=== PATIENT | male | born 1960 | race Caucasian/White ===

== ENCOUNTER 2018-06-19 09:01 | Outpatient (CLI) | payer OTHER, SELFPAY ==
[2018-06-19 11:22] LABS: Cholesterol 310 mg/dL (50-200); Glucose 88 mg/dL (70-100); HDL Cholesterol 72 mg/dL (40-60); LDL CHOLESTEROL 218 mg/dL (<100); Triglyceride 56 mg/dL (30-150)
[2018-06-22 12:08] LABS: Hepatitis C Ab w Rflx HCV PCR Negative (NEGAT)
== END 2018-06-19 09:21 ==
LOC: LBO 09:02 → NCHCO 09:57
PROVIDERS: PCP Family Medicine; Visit Provider Family Medicine
DX: Z00.00 Encounter for general adult medical examination without abnormal findings (principal); Z13.1 Encounter for screening for diabetes mellitus; Z11.59 Encounter for screening for other viral diseases; Z13.220 Encounter for screening for lipoid disorders
CPT/HCPCS: 36415; 80061; 82947; 83721; 86803

== ENCOUNTER 2018-11-02 12:15 | Day surgery (SDC) | payer OTHER, SELFPAY ==
--- NOTE | 2018-11-02 06:43 | ENDO_ITS ---
Date of service: 11/02/18 Time of Service: 14:04 Endoscopy Report DATE OF PROCEDURE: 11/02/18 PRE-OP DIAGNOSIS: Colon Cancer Screening/ Hx of GERD POST-OP DIAGNOSIS: other (GAstritis and esophagitis/ normal colon) PROCEDURE: 1. EGD with bx 2. Colonoscopy SURGEON: Florida Mcghee ANESTHESIA: MAC (Jose Anguiano, PETE/ ASA 2) PATHOLOGY: other (Antrum Bx, GE junction bx) COMPLICATIONS: None DISPOSITION: same day INDICATIONS: Mr. Cortez ia a pleasant 58-year-old gentleman who was seen in the office for his first screening colonoscopy. He also has a history of GERD. His symptoms seem controlled but he is never had an upper endoscopy. Risks, benefit s and complications have been reviewed. Complications include but are not limited to bleeding, pain, perforation, missed small lesion/polyp, missed cancer, sore throat, aspiration and adverse reaction to the medications. Questions were entertained and answered to their satisfaction and they wished to proceed. No guarantees were given or implied. PREP: Miralax/Dulcolax PROCEDURE START TIME: 14:04 PROCEDURE END TIME: 14:39 COLONOSCOPY RETRACTION TIME: 11 minutes FINDINGS: 1. Upper Endoscopy- mild inflammation at the pylorus ? small shallow ulcer; as well as inflammation at the GE junction 2. Normal Colon PROCEDURE DESCRIPTION: After informed consent was obtained the patient was take to the procedure room and placed in a supine position. Monitors were applied and a time out was done. The patients name, date of , procedure type, allergies to medications and metal in their body was reviewed. A bite block was placed and the patient was sedated. Once sedated and comfortable the gastroscope was advanced through the oropharynx which was grossly normal into the esophagus. The proximal and mid-esophagus were normal. In the distal esophagus there was some inflammation noted. The scope was advanced into the stomach and through the pylorus into the 3rd portion of the duodenum. The duodenum was noted to be normal. The scope was retracted back into the stomach and biopsies were done to rule out H. pylori. There was maybe a small shallow ulcer at the pylorus. The scope was retroflexed. The cardia and fundus were noted to be normal. There was no hiatal hernia noted. The scope was retracted back into the esophagus and biopsies were done of the GE junction to rule out Walker's. The Z line was regular. The GE junction was at 35 cm. While the patient was still sedated they were placed in a left decubitous position. A rectal exam was done. External exam was normal. Internal exam revealed a normal sphincter tone and no palpable masses. The prostate felt smooth. The scope was then introduced and retro-flexed. No internal hemorrhoids were identified. The scope was then advanced to the cecum without difficulty. The TI and appendiceal orifice were identified. The prep was adequate. There was some liquid stool noted in the right colon, but I was able to wash it off. The scope was then slowly retracted over 11 minutes back into the rectum. The scope was removed and the patient was woken up and taken back to Same day surgery in stable condition. The patient tolerated the procedure well and there were no immediate complications. Follow up: HIs next colonoscopy should be in 10 years. I will start him on Zantac 150 mg BID and see him in the office in 2 weeks.
--- NOTE | 2018-11-02 06:43 | W.PM.DSUDISC ---
Discharge Plan Disposition Patient Disposition: HOME Condition: Good Discharge Details Reason For Visit: Colon Cancer Screening/ Hx of GERD Attending Provider: Florida Mcghee Primary Care Provider: Mark Wallace Home Meds and New Rx's Prescriptions: New ranitidine HCl [Zantac] 150 mg tablet 150 mg PO BID Qty: 60 RF: 5 Continued ibuprofen 200 MG tablet 200 mg PO PRN PRNRF: 0 caffeine 200 mg Tablet 200 mg PO PRN PRNRF: 0 Discontinued bisacodyl [Dulcolax (bisacodyl)] 5 mg tablet,delayed release (DR/EC) 5 mg PO ONCE Qty: 4 RF: 0 polyethylene glycol 3350 17 gram/dose powder 255 g PO ONCE Qty: 255 RF: 0 Discharge Instructions Instructions: Colonoscopy (DC), Aspiration Pneumonia (DC), Upper Endoscopy (DC), Diet for Stomach Ulcers and Gastritis (GEN), Gastritis (DC), Gastroesophageal Reflux Disease (DC) Additional Instructions: Findings: Inflammation in the stomach and esophagus Normal colon Follow up: 10 years for your next colonoscopy 2 weeks to discuss your medication New Medication: Zantac 150 mg 2 x a day Please call if you develop: fevers >101.5 Nausea or Vomiting Abdominal pain that is not transient DAY SURGERY UNIT POST COLONOSCOPY INSTRUCTIONS 1. Because there will be medication in your system for the next 24 hours, you may feel a little sleepy. Your coordination will be affected. Therefore: a. Do not drive or operate dangerous equipment for 24 hours. b. Do not drink alcohol beverages for 24 hours (not even beer). c. Plan to go home and rest for the day. 2. Generally there are no restrictions on your activity after a day or so has gone by, but you may feel a bit fatigued for a few days. 3 After you arrive home you may have a light meal and return to a normal diet as you can tolerate it without feeling sick to your stomach. 4. After surgery, you may feel pain or discomfort. This should be only transient, but if it persists please contact your doctor. 5. If there are any questions regarding the findings of your procedure, please feel free to contact your doctor. 6. If you are unable to contact your doctor with a problem, contact the hospital at [phone]. 7. Continue all your regular medications unless directed otherwise. I understand the above instructions and have no questions. Signature of Patient or Responsible Adult Escort Date/Time Name of Responsible Adult Escort Signature of Nurse Date/Time Stand Alone Forms: Uriel Pereyra (DSU) Referrals: Florida Mcghee MD [ [place] STAFF PHYSICIAN] - 11/17/18 1:00 pm Activity:: Activity as Tolerated Diet:: As Tolerated Discharge Orders Discharge Orders: Discharge Order (Routine); Ordered 11/02/18 Ordered By: Florida Mcghee
[2018-11-02 12:36] VITALS: BP 107/78; PULSE 105; RESP 18; TEMP 35.7; O2SAT 95
[2018-11-02] MEDS: Lactated Ringers 1,000 ML 80 ML IV (12:52)
--- NOTE | 2018-11-02 14:06 | STOM_PTH ---
PATIENT: Ishan Cortez LOC: [facility] U#:[id number] AGE/SX: 58/M ROOM: RE11/02/[address]: Florida Mcghee MD : 1960 BED: DIS: 11/02/2018 SPEC #: [id number] RECD: 11/02/18 18:01 STATUS: REESE RE #: [id number] MICKEY: 11/02/18 14:[address]: Florida Mcghee DEPT: Surgical Specimen RECD BY: Stacy Ruano ENTERED: 11/02/18 18:01 SP TYPE: STOMACH OTHR DR: Mark Wallace Tissues: 1 - STOMACH BIOPSY 2 - ESOPHAGUS BIOPSY Procedures: GROSS AND MICRO LEVEL 4 Comments: [id number]
[2018-11-02 14:56] VITALS: BP 88/60; O2SAT 92
[2018-11-02 15:12] VITALS: BP 113/83; PULSE 95; RESP 16; TEMP 35.3; O2SAT 95
== END 2018-11-02 16:16 | disposition home or self-care (01) ==
LOC: SUR 12:15
PROVIDERS: PCP Family Medicine; Visit Provider Surgery
PROC: (CPT 43239; principal; 2018-11-02 13:30)
DX: Z12.11 Encounter for screening for malignant neoplasm of colon (principal); K21.0 Gastro-esophageal reflux disease with esophagitis; K29.60 Other gastritis without bleeding; K31.89 Other diseases of stomach and duodenum; I10 Essential (primary) hypertension; G47.33 Obstructive sleep apnea (adult) (pediatric)
CPT/HCPCS: 43239; 45378; 88305

== ENCOUNTER 2019-04-11 00:11 | Outpatient (CLI) | payer OTHER, SELFPAY ==
[2019-04-11 10:12] LABS: HCT 45.9 % (40.0-50.0); Mean Corp. HGB Concentration 34.9 g/dL (32.0-36.0); Mean Corpuscular Hemoglobin 30.1 pg (27.0-33.0); Mean Corpuscular Volume 86.4 fL (80-95); Mean Platelet Volume 10.5 fL (8.0-11.0); Platelet Count 229 x1000/uL (130-400); RBC 5.31 m/cumm (4.50-6.00); RBC Distribution Width 12.6 % (11.8-14.1)
[2019-04-14 13:54] LABS: Testosterone, Free 9.39 ng/dL (3.87-14.7); Testosterone, Total 671 ng/dL (240-950)
== END 2019-04-11 00:31 ==
PROVIDERS: PCP Family Medicine; Visit Provider Family Medicine
DX: R53.83 Other fatigue (principal); E78.5 Hyperlipidemia, unspecified
CPT/HCPCS: 36415; 84402; 84403; 85027; 84443

== ENCOUNTER 2019-05-05 10:57 | Outpatient (CLI) | payer OTHER, SELFPAY ==
--- NOTE | 2019-05-05 09:48 | DI.RAD_ITS ---
SYMPTOM/DIAGNOSIS: ELBOW AND SHOULDER PAIN RIGHT ELBOW: No fracture or joint effusion is seen. There are no significant degenerative changes. No joint space or soft tissue calcifications are seen. IMPRESSION: Negative right elbow. RIGHT SHOULDER: No fracture or dislocation is seen. There are no significant degenerative changes. No tendon or joint space calcifications are seen. IMPRESSION: Negative right shoulder.
== END 2019-05-05 11:17 ==
PROVIDERS: PCP Family Medicine; Visit Provider Physician Assistant
DX: M25.511 Pain in right shoulder (principal); M25.521 Pain in right elbow
CPT/HCPCS: 73030; 73080

== ENCOUNTER 2019-12-01 07:56 | Observation (INO) | payer OTHER, SELFPAY ==
[2019-12-01] VITALS (26 sets, daily range): BP systolic 119–138; BP diastolic 81–102; PULSE 0–80; RESP 11–23; TEMP 36.3–37; O2SAT 92–99
--- NOTE | 2019-12-01 08:15 | DI.RAD_ITS ---
EXAM: XR CHEST 2V PA LATERAL CLINICAL HISTORY: chest pressure TECHNIQUE: 2D digital imaging was performed. COMPARISON: CHEST 2 VIEWS PA,LAT from 09/01/2017 FINDINGS: LUNGS: Clear. No pleural abnormality seen. HEART: Normal. MEDIASTINUM: Normal. OTHER FINDINGS:Normal. BONE:Normal. IMPRESSION: No acute pulmonary findings. DATA REPOSITORY: RADIATION DOSE DELIVERED:
--- NOTE | 2019-12-01 08:23 | W.ED.GENAD ---
Discharge Plan Discharge Details Chief Complaint: SOB Admit Provider: Yun Osborne Attending Provider: Yun Osborne Primary Care Provider: Mark Wallace ED Provider: Apryl Vasquez Home Meds and New Rx's Prescriptions: No Action ibuprofen 200 MG tablet 200 mg PO PRN PRNRF: 0 atorvastatin 40 mg Tablet 40 mg PO HS RF: 0 pantoprazole 20 mg Tablet,Delayed Release (Dr/Ec) 20 mg PO DAILY RF: 0 Medical Decision Making This is a pleasant 59-year-old patient presenting to the emergency room for 4 days of acute shortness of breath worse in the last 24 hours. Patient specifically reports dyspnea on exertion when climbing 2 flights of stairs to his apartment when typically he can run up the stairs with no difficulty. Patient denies chest pain at current but does report mild pressure in the chest which is very vague. No radicular symptoms. Denies headache or dizziness. Patient does report a few episodes of dizziness on standing but no sensation of syncope in the last few days. Upon initial discussion with the patient he denied any specific chest pain however reevaluation and rediscussion with the patient after initial evaluation patient does report that 2 weeks ago when climbing his stairs he had sharp midsternal chest pain which relieved after resting after climbing the stairs. Patient denies any similar pain since. Patient does have a history of hypertension, history of hyperlipidemia. Non-smoker. 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 Denies lower extremity pain however did report mild novoa pain after ambulating this week which is fully resolved and he attributed to novoa splints after walking. Patient denies any cough or hemoptysis. Patient denies any upper respiratory symptoms. He does report a cough and cold he had recently but symptoms have been fully resolved for approximately 3 weeks. Patient does report noncompliance with statin prescribed approximately 1 year ago by PCP for hyperlipidemia. Patient reports he did begin this medication 5 days ago. Patient's initial vital signs reviewed and stable. Initial EKG reviewed with Dr. Rachel reveals sinus rhythm with a rate of [address] segment changes. Q waves noted in 2, 3 and aVF. QTc 427. Aspirin given after initial evaluation. Labs ordered including cardiac troponin as well as d-dimer. Chest x-ray ordered given patient's remotely recent respiratory illness, although I have very little clinical concern of pneumonia based on his examination. Initial troponin returned negative. D-dimer returned negative. Chest x-ray unremarkable for pneumonia. Vital signs continued to remain stable. Given patient's clinical presentation and history, risk factors and age patient's heart score is calculated to be 4, moderate risk. I have recommended this patient be admitted to the hospital for stress testing. Patient agrees with the plan of care for admission and stress testing. I contacted hospitalist for admission. Hospitalist is requesting delta troponin at 3 hours prior to admission placement. Pending delta troponin Patient's delta troponin normal. Call back to hospitalist who will accept patient's admission at this time. Patient consents to admission. HPI General Date/Time Provider Initiated Documentation: 12/01/19 08:03. HPI Narrative: This is a 59-year-old patient presenting to the emergency room for complaints of shortness of breath for the last 4 days. Patient reports vague onset of shortness of breath which he noted without associated cough or chest pain. Patient does report mild chest pressure which is vague. Patient reports in the last 24 hours shortness of breath has increased. Patient reports mild dizziness. Patient denies nausea, vomiting or abdominal pain. No bowel changes. Patient reports when walking up 2 flights of stairs into his apartment he notes significant dyspnea on exertion which is not his baseline. Patient reports no back pain. No radiation to extremities. 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 Patient has a history of high cholesterol which is untreated as he is noncompliant with statins. Denies regular medical evaluations. Non-smoker. Is a daily drinker and has stopped in the last 2 days due to Lent. Patient denies any lower leg swelling. He does report a single episode of anterior novoa pain after walking a few days ago which she attributed to a walk. Patient denies any injury or trauma to the lower legs. Related Data Home Medications Medication Instructions Recorded Confirmed ibuprofen 200 mg PO PRN PRN 05/23/16 12/01/19 atorvastatin 40 mg PO HS 12/01/19 12/01/19 pantoprazole 20 mg PO DAILY 12/01/19 12/01/19 Allergies Allergy/AdvReac Type Severity Reaction Status Date / Time No Known Allergies Allergy Verified 12/01/19 08:04 General Stated Complaint: SOB FADI: 3 Review of Systems All systems reviewed & are unremarkable except as noted in HPI and below Constitutional Constitutional: Denies chills, Denies fever(s), Denies headache(s) and Denies malaise ENT Ears, Nose, Mouth, and Throat: Denies headache(s), Denies nasal congestion, Denies sinus pain and Denies sore throat Cardiovascular Cardiovascular: Denies chest pain, Denies chest pain at rest, Denies chest pain with activity, Denies diaphoresis, Denies syncope, Denies pedal edema, Denies edema, Denies radiating jaw, neck or arm pain, Denies palpitations, Reports dyspnea and Reports dyspnea on exertion Respiratory Respiratory: Denies cough, Denies hemoptysis, Denies excessive phlegm production, Reports dyspnea, Reports dyspnea on exertion, Denies stridor and Denies wheezing Gastrointestinal Gastrointestinal: Denies abdominal pain, Denies diarrhea, Denies nausea and Denies vomiting Neurologic Neurologic: Denies syncope and Denies headache(s) Endocrine Endocrine: Denies palpitations Allergic/Immunologic Allergic/Immunologic: Denies wheezing [facility] Medical History DJD (degenerative joint disease) Essential hypertension GERD (gastroesophageal reflux disease) History of obstructive sleep apnea Hyperlipidemia Left knee pain (Acute) Obstructive sleep apnea (Chronic) Overweight (Acute) Surgical History (Updated 11/09/18 @ 07:30 by Sonia Welch RN) UPPP (Uvulopalatopharyngoplasty) Social History Smoking/Tobacco Use Status: Never Alcohol Intake: current Alcohol Intake frequency: 0-2 drinks per day Alcohol type: beer and wine Drug use: Never Substance use type: does not use Do you feel safe in your relationship?: Yes Exam Narrative Exam Narrative: CONST: Healthy appearing patient, in no acute distress. Well hydrated. Alert and alert. HENMT: Head nomocephalic, normal to inspection. Atraumatic. Hearing grossly normal. External ear canal no erythema or swelling. TM normal bilaterally. Nose normal to inspection. No rhinnorhea. Normal facial exam. Oral mucosa normal. Tounge normal. Dentition normal. Normal posterior oropharynx. Uvula midline. EYES: General normal appearance. Alignment normal. Eyelids normal. Conjunctiva normal. Sclera normal. PERRL. NECK: Normal visual inspection. FROM. No lymphadenopathy. Trachea midline. No Midline tenderness. CHEST: Normal insepection of the chest. RESP: Normal respiratory effort. Speaking full sentences. No cough. No wheezing. No retractions. Clear to auscaltation. Breath sound equal and present bilaterally. No wheezing, rhonchi or rales CARDIO: No JVD. Normal PMI. Regular Rate. Regular Rhythm. Normal peripheral pulses. GI: Normal inspection of abdomen. No distension. Soft. Nontender. Bowel sounds present in all 4 quadrants. No rebound. No gaurding. MUSCULOSKELETAL: Normal Gait. FROM of all extremities. Distal neurovascularly intact. Sensation intact distally. No lower extremity edema. SKIN: Normal. Dry. No rashes. NEURO: Alert and awake. Speech clear. PSYCH: Normal affect. Cooperative. Course Vital Signs Vital signs: Vital Signs Temperature 36.7 C 12/01/19 07:58 Pulse 70 12/01/19 07:58 Respiratory Rate 14 12/01/19 07:58 Blood Pressure 134/98 H 12/01/19 07:58 Pulse Oximetry 96 12/01/19 07:58 Temperature 36.7 C 12/01/19 07:58 Temperature Source Skin 12/01/19 07:58 Pulse 70 12/01/19 07:58 Respiratory Rate 14 12/01/19 08:04 Respiratory Effort 12/01/19 08:06 Respiratory Depth Normal 12/01/19 08:04 Respiratory Pattern Normal 12/01/19 08:04 Blood Pressure 134/98 H 12/01/19 07:58 Blood Pressure Position Supine 12/01/19 07:58 Pulse Oximetry 96 12/01/19 07:58 Oxygen Delivery Method Room Air 12/01/19 07:58 Oxygen Flow Rate 0 12/01/19 07:58 Pain Level 1 12/01/19 08:04
[2019-12-01 08:31] LABS: Abs Immature Grans 0.01 k/cumm (0.0-0.09); Absolute Basophil Count 0.03 k/cumm (0.0-0.2); Absolute Eosinophil Count 0.12 k/cumm (0.0-0.7); Absolute Lymphocyte Count 1.54 k/cumm (1.2-3.4); Absolute Monocyte Count 0.39 k/cumm (0.11-0.7); Absolute Neutrophil Count 2.67 k/cumm (1.2-6.7); Basophils % 0.6; Eosinophils % 2.5; HCT 44.7 % (40.0-50.0); HGB 15.9 g/dL (13.5-17.5); Immature Grans % 0.2 %; Lymphocytes % 32.4; Mean Corp. HGB Concentration 35.6 g/dL (32.0-36.0); Mean Corpuscular Hemoglobin 30.6 pg (27.0-33.0); Monocytes % 8.2; Neutrophils % 56.1; Platelet Count 228 x1000/uL (130-400); RBC Distribution Width 12.4 % (11.8-14.1); White Blood Cell Count 4.76 k/cumm (4.4-10.8)
[2019-12-01] MEDS: Aspirin 81 MG CHEW 324 MG CH (08:48)
[2019-12-01 09:01] LABS: ALT 57 U/L (16-63); AST 36 U/L (15-37); Albumin 4.1 g/dL (3.4-5.0); Alkaline Phosphatase 56 U/L (46-116); Anion Gap 9.6 mmol/L (3-11); BUN 14 mg/dL (7-18); Bilirubin, Total 0.4 mg/dL (0.2-1.0); CO2 25.4 mmol/L (21.0-32.0); CREATININE 0.99 mg/dL (0.70-1.30); Calcium 8.1 mg/dL (8.5-10.1); Chloride 104 mmol/L (98-107); Glucose 89 mg/dL (74-106); Potassium 3.7 mmol/L (3.5-5.1); Sodium 139 mmol/L (136-145)
[2019-12-01 09:04] LABS: Troponin I < 0.05 ng/Ml (<0.06)
[2019-12-01 09:30] LABS: D-Dimer 229 ng/mlFEU (<500)
[2019-12-01 09:59] LABS: Bilirubin Negative (Negative); Blood Negative (Negative); Clarity Clear (Clear); Glucose Negative (Negative); Ketones Negative (Negative); Leukocyte Esterase Negative (Negative); Nitrite Negative (Negative); Urobilinogen 0.2 EU/dL (Up TO 0.2)
[2019-12-01 11:51] LABS: Troponin I < 0.05 ng/Ml (<0.06)
[2019-12-01] MEDS: Normal Saline Flush 10 ML SYR IVP (11:52)
[2019-12-01 13:23] LABS: *AMPHETAMINES SCREEN URINE Negative (Negative); *BARBITURATES SCREEN URINE Negative (Negative); *BENZODIAZEPINES SCREEN URINE Negative (Negative); Cannabinoids THC Negative (Negative); Cocaine Screen,Urine Negative (Negative); METHADONE URINE SCREEN Negative (Negative); OPIATES URINE SCREEN Negative (Negative)
[2019-12-01 13:24] LABS: Tricyclic Antidepressants Negative (Negative)
--- NOTE | 2019-12-01 15:17 | W.PM.HP.N ---
Date of service: 12/01/19 Time of Service: 15:17 Assessment and Plan Assessment and plan (1) SOB (shortness of breath): Start date: 12/01/19 Start time: 15:38 Status: Acute Assessment and plan: Feels as tough he is unable to take full deep breaths. Denies CP. CXR negative. Labs unremarkable. Recently put on amoxicillin for dental abscess with needing tooth to be pulled. Will r/o endocarditis. Also c/o muscle aches with statins. Lipid panel for am. Labs unremarkable. Stress test for tomorrow. Repeat cbc and bmp. Blood cultures pending. Afebrile, no leukocytosis. t (2) Hyperlipidemia: Start date: 12/01/19 Start time: 15:50 Status: None Assessment and plan: Repeat lipid panel for tomorrow. C/o muscle aches on a statin. Will hold and consider alternatives. Recently restarted taking a week ago after being told he should by a friend. (3) Dental abscess: Start date: 12/01/19 Start time: 15:51 Status: Acute Assessment and plan: On amoxicillin from dentist. Due to have tooth pulled out. R/O endocarditis. (4) DVT prophylaxis: Start date: 12/01/19 Start time: 15:52 Status: Acute Assessment and plan: Enoxaparin 40 mg subcu above case discussed with Dr. Osborne who is in agreement. History of Present Illness History of Present Illness Chief Complaint: SOB Narrative: 59 y.o male with HLD, GERD presented to [facility] ED with SOB x 4 days worsening over last 24 hours. 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 4 days ago he could not take a deep breath. Over the last 24 hours he noticed it to be worse. He denies SOB, he states he can not fully take a deep breath. He denies CP. Labs in the ED unremarkable. Urine negative. CXR negative. Repeat troponins negative. EKG with Sinus Rhythm in 70's from ED. He states he restarted taking his statin a week ago after he quit taking it a couple months ago due to muscle aches. Repeat Lipid panel for tomorrow. Hold statin. He has not needed nitro for pain. BP 122/88. Currently he is taking amoxicillin for an infected tooth, that is due to get pulled. We will continue amoxicillin dose. Stress test for tomorrow repeat labs and continue to monitor. Review of Systems All systems reviewed & are unremarkable except as noted in HPI and below PFSH Medical History DJD (degenerative joint disease) Essential hypertension GERD (gastroesophageal reflux disease) History of obstructive sleep apnea Hyperlipidemia Left knee pain (Acute) Obstructive sleep apnea (Chronic) Overweight (Acute) Surgical History UPPP (Uvulopalatopharyngoplasty) Social History Smoking/Tobacco Use Status: Never Alcohol Intake: current Alcohol Intake frequency: 0-2 drinks per day Alcohol type: beer and wine Drug use: Never Substance use type: does not use Do you feel safe in your relationship?: Yes Meds Home Medications and Allergies Home Medications Medication Instructions Recorded Confirmed Type ibuprofen 200 mg PO PRN PRN 05/23/16 12/01/19 History pantoprazole 20 mg PO DAILY 12/01/19 12/01/19 History Allergies Allergy/AdvReac Type Severity Reaction Status Date / Time Cskwpos-Bzd-Nko Reductase AdvReac Intermediate muscle Verified 12/01/19 15:15 Inhibitor aches, Exam Const General: cooperative, healthy appearing, comfortable and no acute distress Nutritional Appearance: average body habitus Orientation: alert, awake and oriented x3 HENMT Head: normal to inspection, normocephalic and atraumatic Mouth: oral mucosae normal Eyes Pupils: PERRL EOM: EOM intact bilaterally Neck Neck: normal visual inspection and full ROM Carotids: normal carotid upstroke Lymphatic: no lymphadenopathy noted Chest Chest: normal inspection of the chest Resp Effort & Inspection: normal respiratory effort Auscultation: clear to auscultation bilaterally Cardio Jugular venous pressure: no JVD Rate: regular rate Rhythm: regular rhythm Heart Sounds: S1 normal and S2 normal GI Inspection: normal to inspection Auscultation: normal bowel sounds General: deferred Back/Spine/Pelvis Back: no CVA tenderness Thoracic/Lumbar Spine: thoracic and lumbar spine normal to inspection Skin General skin exam: no rashes or lesions noted Lesions: no lesions Rashes: no rashes Neuro General: alert, awake and oriented x3 Cognition: normal cognition Extrem General: normal to inspection, full ROM and no clubbing, cyanosis or edema Psych Appearance: grossly normal Speech and Movement: speech and movement normal Mood: congruent mood Affect: normal affect Attitude: cooperative Results Labs Result diagrams: 12/01/19 08:20 12/01/19 08:20 Labs: Laboratory Results - last 24 hr 12/01/19 12/01/19 12/01/19 08:20 08:20 08:20 WBC 4.76 RBC 5.20 Hgb 15.9 Hct 44.7 MCV 86.0 MCH 30.6 MCHC 35.6 RDW 12.4 Plt Count 228 MPV 10.0 Immature Gran % 0.2 Neutrophils % 56.1 Lymphocytes % 32.4 Monocytes % 8.2 Eosinophils % 2.5 Basophils % 0.6 Absolute Neutrophils 2.67 Absolute Lymphocytes 1.54 Absolute Monocytes 0.39 Absolute Eosinophils 0.12 Absolute Basophils 0.03 D-Dimer 229 Sodium 139 Potassium 3.7 Chloride 104 Carbon Dioxide 25.4 Anion Gap 9.6 BUN 14 Creatinine 0.99 Estimated GFR/1.73 m2 >= 60.00 Glucose 89 Calcium 8.1 L Magnesium Total Bilirubin 0.4 AST 36 ALT 57 Alkaline Phosphatase 56 Troponin I < 0.05 Total Protein 7.0 Albumin 4.1 Urine Color Urine Clarity Urine pH Ur Specific [place] Urine Protein Urine Ketones Urine Blood Urine Nitrite Urine Bilirubin Urine Urobilinogen Ur Leukocyte Esterase Urine Glucose Urine Opiates Screen Urine Methadone Screen Ur Barbiturates Screen Ur Tricyclics Screen Ur Amphetamines Screen U Benzodiazepines Scrn Urine Cocaine Screen Ur THC Screen 12/01/19 12/01/19 12/01/19 09:37 09:47 11:20 WBC RBC Hgb Hct MCV MCH MCHC RDW Plt Count MPV Immature Gran % Neutrophils % Lymphocytes % Monocytes % Eosinophils % Basophils % Absolute Neutrophils Absolute Lymphocytes Absolute Monocytes Absolute Eosinophils Absolute Basophils D-Dimer Sodium Potassium Chloride Carbon Dioxide Anion Gap BUN Creatinine Estimated GFR/1.73 m2 Glucose Calcium Magnesium Total Bilirubin AST ALT Alkaline Phosphatase Troponin I < 0.05 Total Protein Albumin Urine Color Yellow Urine Clarity Clear Urine pH 7.0 Ur Specific [place] 1.010 Urine Protein Negative Urine Ketones Negative Urine Blood Negative Urine Nitrite Negative Urine Bilirubin Negative Urine Urobilinogen 0.2 Ur Leukocyte Esterase Negative Urine Glucose Negative Urine Opiates Screen Negative Urine Methadone Screen Negative Ur Barbiturates Screen Negative Ur Tricyclics Screen Negative Ur Amphetamines Screen Negative U Benzodiazepines Scrn Negative Urine Cocaine Screen Negative Ur THC Screen Negative 12/01/19 11:20 WBC RBC Hgb Hct MCV MCH MCHC RDW Plt Count MPV Immature Gran % Neutrophils % Lymphocytes % Monocytes % Eosinophils % Basophils % Absolute Neutrophils Absolute Lymphocytes Absolute Monocytes Absolute Eosinophils Absolute Basophils D-Dimer Sodium Potassium Chloride Carbon Dioxide Anion Gap BUN Creatinine Estimated GFR/1.73 m2 Glucose Calcium Magnesium 2.0 Total Bilirubin AST ALT Alkaline Phosphatase Troponin I Total Protein Albumin Urine Color Urine Clarity Urine pH Ur Specific [place] Urine Protein Urine Ketones Urine Blood Urine Nitrite Urine Bilirubin Urine Urobilinogen Ur Leukocyte Esterase Urine Glucose Urine Opiates Screen Urine Methadone Screen Ur Barbiturates Screen Ur Tricyclics Screen Ur Amphetamines Screen U Benzodiazepines Scrn Urine Cocaine Screen Ur THC Screen Last Vital Signs Temp 37 C 12/01/19 12:50 Pulse 75 12/01/19 12:50 Resp 15 12/01/19 12:50 BP 122/88 12/01/19 12:50 Pulse Ox 96 12/01/19 12:50
[2019-12-01 20:09] LABS: Troponin I < 0.05 ng/Ml (<0.06)
[2019-12-01] MEDS: Amoxicillin 500 MG CAP PO (20:38)
--- NOTE | 2019-12-02 | DI.NM_ITS ---
APPROVED REPORT Exam: Exercise Treadmill Patient Location: In-Patient Room/Bed: 216 Stress Nurse: Magalie Buchanan RN BMI: 29.15 Baseline Rhythm: Sinus Rhythm Comment: Slight St Segment Elevation in Inferior leads at baseline. Indications: Patient admitted to hospital 12/01/2019 after four days of increasing SOB and approximatel y twenty four hours of midsternal/substernal chest pressure (3/10). Medical History Medical History: GERD, Sleep Apnea. Cardiac Medications: Atorvastatin Allergies: No known drug allergies Cardiac Risk Factors: FHX of CAD, Hyperlipidemia Previous Cardiac Procedures: None Pretest Chest Pain Characteristics: Midsternal/Substernal chest pressure 3/10 at baseline today. Exercise History: Sedentary Physical Disabilities: None Lung Sounds: Clear to auscultation Heart Sounds: Regular Stress Test Details Test: Exercise stress testing was performed using a Malcom protocol. Nuclear Acquisition: Stress Tc-99m/Stress Tc-99m 1 day Rest Isotope: Tc-99m Sestamibi. Dose: 10.7 Date: 12/02/2019 Injection Time: 0815 Stress Isotope: Tc-99m Sestamibi. Dose: 31.8 Date: 12/02/2019 Injection Time: 1115 HR Resting HR Supine: 71 bpm Max Heart Rate (APMHR): 162 bpm Resting HR Standin bpm Target HR (85% APMHR): 137 bpm Max HR Achieved: 167 bpm % of APMHR: 103 HR response to stress: Normal HR response to stress BP Resting BP Supine: 140/98 mmHg Resting BP Standin/94 mmHg Max BP: 140/98 mmHg ECG Resting ECG: Sinus Rhythm Stress ECG: Sinus Tachycardia ST Change: Horizontal ST depression Lead(s): V4, V5 Maximum ST Deviation: 0.5 mm Arrhythmia: None Recovery ECG: Sinus Rhythm Recovery ST Change: Normal Recovery Arrhythmia: None Clinical Reason for Termination: Fatigue Stress Symptoms: No change during exercise testing with pre test chest pressure 3/10. Exercise duration: 9 min47 sec Highest Stage Reached: Stage 4: 4.2 mph at 16% grade. Exercise capacity: 11.44 METs Functional Capacity: Average Capacity Stress ECG Conclusion 1. The patient exercised for 9 minutes 47 seconds (11 METS). Exercise was terminated due to fatigue. 2. The patient had a chest pressure prior to ambulation which continued through exercise. 3. There were 0.5 [address] depressions in the lateral leads during exercise. Protocol Used: Malcom Protocol Stress Test Summary STAGE Time (mins) Speed (mph) Grade (%) HR BP SYMPTOMS METS Supine 71 140/98 Standing 114 118/94 1 3 1.7 10 120 138/90 4.6 2 6 2.5 12 138 120/75 7 3 9 3.4 14 154 130/68 10.2 4 12 4.2 16 12.9 5 15 5.0 18 17.2 1 min recovery 126 110/70 3 min recovery 104 140/90 6 min recovery 92 128/94 9 min recovery 12 min recovery MPI Conclusion The patient's ejection fraction was 62% with exercise. There were no wall motion abnormalities. There was no evidence of ischemia on the imaging portion of this exam. This represents a normal SPECT imaging study.
[2019-12-02 03:49] VITALS: BP 120/79; PULSE 75; RESP 16; TEMP 37.2; O2SAT 93
[2019-12-02 07:21] LABS: HCT 47.3 % (40.0-50.0); HGB 16.5 g/dL (13.5-17.5); Mean Corp. HGB Concentration 34.9 g/dL (32.0-36.0); Mean Corpuscular Hemoglobin 30.2 pg (27.0-33.0); Mean Corpuscular Volume 86.5 fL (80-95); Mean Platelet Volume 10.1 fL (8.0-11.0); Platelet Count 223 x1000/uL (130-400); RBC 5.47 m/cumm (4.50-6.00); RBC Distribution Width 12.6 % (11.8-14.1); White Blood Cell Count 4.19 k/cumm (4.4-10.8)
[2019-12-02 08:01] LABS: Anion Gap 9.3 mmol/L (3-11); BUN 12 mg/dL (7-18); CO2 24.7 mmol/L (21.0-32.0); CREATININE 0.99 mg/dL (0.70-1.30); Calcium 8.5 mg/dL (8.5-10.1); Chloride 107 mmol/L (98-107); Glucose 97 mg/dL (74-106); Magnesium 2.1 mg/dL (1.8-2.4); Potassium 4.4 mmol/L (3.5-5.1); Sodium 141 mmol/L (136-145); TSH (W/Ref FT4) 2.04 uIU/mL (0.36-3.74)
[2019-12-02 08:14] LABS: Calculated LDL 196 mg/dL (<100); Cholesterol 265 mg/dL (<200); HDL Cholesterol 53 mg/dL (40-60); Triglyceride 84 mg/dL (<150)
[2019-12-02 08:26] VITALS: BP 131/86; PULSE 89; RESP 16; TEMP 36.6; O2SAT 99
--- NOTE | 2019-12-02 10:17 | W.NUTCONSULT ---
Date of service: 12/02/19 Time of Service: 10:17 Nutritional Consult ASSESSMENT: 59 year old male admitted with chest pain, SOB with dental abscess. Following heart healthy diet with adequate intake, currently NPO for test. BMI wnl for age. Not considered at nutritional risk at this time. MONITORING AND EVALUATION: will monitor weight, po intake, labs daily Time Spent in Nutritional Counseling and Treatment: 0 time spent face to face
[2019-12-02 11:50] VITALS: BP 113/77; PULSE 72; RESP 16; TEMP 36.5; O2SAT 99
[2019-12-02] MEDS: Amoxicillin 500 MG CAP PO ×3 (12:01→17:00)
[2019-12-02] MEDS: Acetaminophen 325 MG TAB PO (12:01)
--- NOTE | 2019-12-02 14:09 | CHAPLAIN ---
Ishan said he is waiting to hear the results of some tests, and expects he may by discharged later today. He asked if I could look into where his lunch is as he was served at the usual time. I checked with the front facer and they ordered one to be brought to him.
--- NOTE | 2019-12-02 16:13 | W.PM.DS.N ---
Date of service: 12/02/19 Time of Service: 16:16 DS: Diagnosis Discharge Diagnosis (1) SOB (shortness of breath): Status: Acute (2) Hyperlipidemia: Status: None (3) Dental abscess: Status: Acute Discharge Plan Disposition Patient Disposition: HOME Condition: Good Discharge Details Chief Complaint: SOB Reason For Visit: CHEST PAIN, WOMACK Admit Date/Time: 12/01/19 12:13 Admit Provider: Yun Osborne Attending Provider: Yun Osborne Primary Care Provider: Mark Wallace ED Provider: Apryl Vasquez Hospital Course Hospital Course: This is a 59 y.o male with HLD, GERD presented to [facility] ED with SOB x 4 days worsening over last 24 hours. 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 4 days ago he could not take a deep breath. Over the last 24 hours he noticed it to be worse. He denies SOB, he states he can not fully take a deep breath. He denies CP but reports some substernal chest pressure. Labs in the ED unremarkable. Urine negative. CXR negative, d-dimer negative. Repeat troponins negative. EKG and subsequent telemetry monitoring with Sinus Rhythm in 70's. He states he restarted taking his statin a week ago after he quit taking it a couple months ago due to muscle aches. He has not needed nitro for pain. BP 122/88. Currently he is taking amoxicillin for an infected tooth, that is due to get pulled. he was referred to observation for Stress test MPI which was unremarkable. His vitals have remained stable, testing and monitoring unremarkable. He will be discharged to home to follow up outpatient with pcp for further testing. Home Meds and New Rx's Prescriptions: Continued ibuprofen 200 MG tablet 200 mg PO PRN PRNRF: 0 pantoprazole 20 mg Tablet,Delayed Release (Dr/Ec) 20 mg PO DAILY RF: 0 Discharge Instructions Instructions: Dyspnea (GEN) Additional Instructions: continue taking your antibiotic as previously prescribed. Stand Alone Forms: Nursing Discharge Form Referrals: Mark Wallace [Primary Care Provider] - 12/15/19 4:00 pm Activity:: Activity as Tolerated Equipment/Supplies:: No Equipment Needed Diet:: As Tolerated Discharge Orders Discharge Orders: Discharge Order (Routine); Ordered 12/02/19 Ordered By: [place]ia Brambila Discharge Data Discharge Date/Time-TO BE ENTERED AT DEPARTURE: 12/02/19 17:11 DS: Summary Status at Discharge Functional status at discharge: independent ambulation Overall status at discharge: patient is back to baseline Mental Status: mental status grossly normal Speech and Movement: speech and movement normal Mood: congruent mood Affect: normal affect Exam Const General: cooperative, comfortable, no acute distress, well developed and anxious Nutritional Appearance: average body habitus Orientation: alert, awake and oriented x3 HENMT Head: normal to inspection, normocephalic and atraumatic Mouth: oral mucosae normal Chest Chest: normal inspection of the chest Resp Effort & Inspection: normal respiratory effort Auscultation: clear to auscultation bilaterally Cardio Rate: regular rate Rhythm: regular rhythm Heart Sounds: no murmurs GI Inspection: normal to inspection Skin General skin exam: no rashes or lesions noted Neuro General: alert, awake and oriented x3 Extrem General: normal to inspection, full ROM and no pedal edema Psych Appearance: grossly normal and well kempt Mental Status: mental status grossly normal Speech and Movement: speech and movement normal Mood: congruent mood Affect: normal affect Attitude: cooperative Thought Process: normal Thought Content: normal Insight: insight good Judgment: judgment good DS: Data Vitals/I&O Vitals and I&O: Vital Signs Temperature 36.5 C 12/02/19 11:50 Temperature Source Tympanic 12/02/19 11:50 Pulse 72 12/02/19 11:50 Pulse Rhythm Regular 12/02/19 15:09 Pulse 78 12/01/19 08:50 Respiratory Rate 16 12/02/19 11:50 Respiratory Effort 12/02/19 15:09 Respiratory Depth Normal 12/02/19 15:09 Respiratory Pattern Normal 12/02/19 15:09 Blood Pressure 113/77 12/02/19 11:50 Blood Pressure Mean 99 12/01/19 08:46 Blood Pressure Position Supine 12/01/19 07:58 Pulse Oximetry 99 12/02/19 11:50 Oxygen Delivery Method Room Air 12/02/19 11:50 Oxygen Flow Rate 0 12/02/19 11:50 Pain Level 4 12/02/19 12:01 Intake & Output 12/01/19 12/02/19 12/02/19 23:59 11:59 23:59 Intake Total 240 / 240 Balance 240 / 240 Weight 95.254 kg 94.8 kg Intake: Oral 240 / 240 Data Completed and Pending Labs on day of discharge: Labs from last 24 hours 12/02/19 12/02/19 12/01/19 06:50 06:50 19:42 WBC 4.19 L RBC 5.47 Hgb 16.5 Hct 47.3 MCV 86.5 MCH 30.2 MCHC 34.9 RDW 12.6 Plt Count 223 MPV 10.1 Sodium 141 Potassium 4.4 Chloride 107 Carbon Dioxide 24.7 Anion Gap 9.3 BUN 12 Creatinine 0.99 Estimated GFR/1.73 m2 >= 60.00 Glucose 97 Calcium 8.5 Magnesium 2.1 Troponin I < 0.05 Triglycerides 84 Total Cholesterol 265 H LDL Cholesterol, Calc 196 H HDL Cholesterol 53 TSH 2.04 12/01/19 16:04 Blood Blood Culture - Pending 12/01/19 15:54 Blood Blood Culture - Pending Preliminary micro results at discharge 12/01/19 16:04 Blood Culture - Pending Blood 12/01/19 15:54 Blood Culture - Pending Blood [facility] Medical History DJD (degenerative joint disease) Essential hypertension GERD (gastroesophageal reflux disease) History of obstructive sleep apnea Hyperlipidemia Left knee pain (Acute) Obstructive sleep apnea (Chronic) Overweight (Acute) Surgical History UPPP (Uvulopalatopharyngoplasty) Social History Smoking/Tobacco Use Status: Never Alcohol Intake: current Alcohol Intake frequency: 0-2 drinks per day Alcohol type: beer and wine Drug use: Never Substance use type: does not use Do you feel safe in your relationship?: Yes
[2019-12-02 16:15] VITALS: PULSE 97
== END 2019-12-02 17:11 | disposition home or self-care (01) ==
LOC: ER 12:39 → MS 13:03
PROVIDERS: Nurse Practitioner Family; Admitting Provider Internal Medicine; Emergency Provider Physician Assistant; PCP Family Medicine; Visit Provider Internal Medicine
DX: R06.02 Shortness of breath (principal); R07.89 Other chest pain; K04.7 Periapical abscess without sinus; E78.5 Hyperlipidemia, unspecified; I10 Essential (primary) hypertension; K21.9 Gastro-esophageal reflux disease without esophagitis; G47.33 Obstructive sleep apnea (adult) (pediatric); T50.996A Underdosing of other drugs, medicaments and biological substances, initial encounter; R06.09 Other forms of dyspnea; M19.90 Unspecified osteoarthritis, unspecified site; E66.3 Overweight; Z68.27 Body mass index [BMI] 27.0-27.9, adult
CPT/HCPCS: 36410; 36415; 78452; 80048; 80053; 80061; 80307; 85027; 87040; 93005; 99217; 99223; 99285; 71046; 81003; 83735; 84443; 84484; 85025; 85379; 93010; 93017; 99220; G0378

== ENCOUNTER 2019-12-23 11:48 | Outpatient (REF) | payer OTHER, SELFPAY ==
[2019-12-24 22:59] LABS: SARS-CoV-2 RNA Undetected (Undetected); SARS-CoV-2 Specimen Source Nasopharynx
== END 2019-12-23 12:08 ==
LOC: NCHCN 11:48
PROVIDERS: PCP Family Medicine; Visit Provider Family Medicine
DX: Z20.828 Contact with and (suspected) exposure to other viral communicable diseases (principal); R06.02 Shortness of breath
CPT/HCPCS: U0003

== ENCOUNTER 2020-01-17 01:54 | Outpatient (CLI) | payer OTHER, SELFPAY ==
--- NOTE | 2020-01-17 10:37 | DI.US_ITS ---
APPROVED REPORT EXAM: Comprehensive 2D, Doppler, and color-flow Echocardiogram Patient Location: Out-Patient [facility] Operator: Lorena Barreto RDCS (AE) Indications: Shortness of Breath Other Information Study Quality: Adequate Conclusion Left Ventricle : The left ventricle is normal size. The left ventricular systolic function is normal. The left ventricular ejection fraction is within the normal range. There is normal left ventricular wall thickness. There is normal LV segmental wall motion. The left ventricular diastolic function is normal. LVEF is 50-55%. Right Ventricle : The right ventricle is normal size. The right ventricular systolic function is norm al. Atria : The left atrium size is normal. The right atrium size is normal. Also: There are no hemodynamically significant valvular lesions. Great Vessels : IVC is normal in size and collapses >50% with inspiration. There is no prior echocardiogram available for comparison. Wall motion Left Ventricle The left ventricle is normal size. The left ventricular systolic function is normal. The left ventric ular ejection fraction is within the normal range. There is normal left ventricular wall thickness. T here is normal LV segmental wall motion. The left ventricular diastolic function is normal. There is no ventricular septal defect visualized. LVEF is 50-55%. Right Ventricle The right ventricle is normal size. The right ventricular systolic function is normal. The RVSP is 16 mmHg. Atria The left atrium size is normal. The right atrium size is normal. The interatrial septum is intact wit h no evidence for an atrial septal defect. Aortic Valve The aortic valve is normal in structure. Aortic valve is trileaflet. There is no aortic valvular sten osis. No aortic regurgitation is present. Mitral Valve The mitral valve is normal in structure. No evidence of mitral valve stenosis. Trace mitral regurgita tion. Tricuspid Valve The tricuspid valve is normal in structure. There is no tricuspid valve stenosis. Trace tricuspid reg urgitation. Pulmonic Valve The pulmonary valve is normal in structure. There is no pulmonic valvular stenosis. Trace pulmonic re gurgitation. Great Vessels The aortic root is normal in size. The ascending aorta is normal in size. IVC is normal in size and c ollapses >50% with inspiration. Pericardium There is no pericardial effusion. There is no pleural effusion. 2D Dimensions IVSD d PLAX 1.04 cm M: 0.6-1.2 LV Vol A2C d MOD 62.9 mL LVPW d PLAX 1.02 cm M: 0.6 - 1.2 LV Vol A4C d MOD 89.9 mL LVID d PLAX 4.19 cm M: 4.2 - 5.8 LA vol/ BSA A2C s A-L 22.1 mL/m2 LVDs 3.05 cm M: 2.5 - 4.0 LA vol/ BSA A4C s A-L 14.2 mL/m2 Ao Root d 3.44 cm M: 3.1 - 3.7 LA Vol/ BSA Biplane s A-L 19.7 mL/m2 RA Area A4C 12.99 cm2 LA Area A4C s MOD 12.59 cm2 RA Vol/ BSA A4C s A-L 15.2 mL/m2 LA Area A2C s MOD 17.44 cm2 LV EF Teichholz 53.0 % LV EF A4C MOD 52.8 % LVEF (Newman's) 55.34 % M: 52 - 72 LV EF A2C MOD 60.5 % LV Volume 60.57 mL M: 62 - 150 LV EF Biplane MOD 55.3 % LV Volume Index 27.91 mL/m2 M: 34 - 74 LV Vol Biplane MOD 83.0 mL FS 26.95 % M-Mode TAPSE 2.04 cm (M/F) <1.7 LV Diastology MV E' medial 0.065 (>0.07 m/s) E/A Ratio 0.7 LV E/e MED 10.90 (<14) MV E Vmax 0.71 (0.4-1.3 m/s) MV E' lateral 0.076 (>0.1 m/s) MV A Vmax 0.95 (0.4-1.3 m/s) LV E/e LAT 9.35 (<14) MV E/A Ratio 0.75 MV E/E' medial 10.94 MV E/E' lateral 9.35 Aortic Valve LVOT Area 3.20 cm2 AoV Area Vmax 2.67 cm2 LVOT Vmax 1.16 m/s AoV Area/ BSA (Vmax) 1.23 cm2/m2 LVOT Mean Tavon. 0.72 m/s ALEXY Mean Tavon. 2.08 cm2 LVOT Peak Grad 5.4 mmHg ALEXY Mean Tavon. Index 0.96 cm2/m2 LVOT Mean Grad 2.5 mmHg LVOT VTI 0.220 m LVOT Diam s 2.00 cm (M/F) 1.5-2.5 AoV Vmax 1.39 (0.5-1.3 m/s) Velocity Ratio 0.83 AoV Mean Tavon. 1.11 m/s AoV Peak Grad 7.7 mmHg LVOT SV 70.27 mL AoV Mean Grad 5.2 (<5 mmHg) AoV VTI 0.216 (0.18-0.25 m) AoV Area VTI 3.26 (2.5-4.5 cm2) AoV Area/ BSA (VTI) 1.50 cm/m2 Mitral Valve MV DT 323 (160-240 msec) MV PHT 94 msec MV Area PHT 2.35 cm2 Pulmonary Valve PV Vmax 1.04 (0.5-1.5 m/s) RVOT Peak Gr. 1.75 mmHg PV Peak Grad 4.3 mmHg RVOT Mean Gr. 0.75 mmHg PV Mean Grad 2.1 mmHg RVOT VTI 0.116 m PV VTI 0.161 m RVOT Vmax 0.66 m/s Tricuspid Valve TR Peak Grad 13.0 mmHg TR Vmax 1.81 m/s RA Pressure 3.00 mmHg RVSP (TR) 16.1 mmHg
== END 2020-01-17 02:14 ==
PROVIDERS: PCP Family Medicine; Visit Provider Family Medicine
DX: R06.02 Shortness of breath (principal); R07.89 Other chest pain; Z82.49 Family history of ischemic heart disease and other diseases of the circulatory system
CPT/HCPCS: 93306

== ENCOUNTER 2020-05-12 14:24 | Outpatient (REF) | payer OTHER, SELFPAY ==
[2020-05-15 00:06] LABS: SARS-CoV-2 RNA Undetected (Undetected); SARS-CoV-2 Specimen Source Nasopharynx
== END 2020-05-12 14:44 ==
LOC: NCHCN 14:24
PROVIDERS: PCP Family Medicine; Visit Provider Family Medicine
DX: Z20.828 Contact with and (suspected) exposure to other viral communicable diseases (principal)
CPT/HCPCS: U0003

== ENCOUNTER 2020-07-21 03:13 | Outpatient (CLI) | payer OTHER, SELFPAY ==
--- NOTE | 2020-07-21 | DI.RAD_ITS ---
EXAM: XR HAND RT LIMITED CLINICAL HISTORY: TRAUMA 04/17, ? FX,PAIN,STIFFNESS RT 3RD PIP. TECHNIQUE: 2D digital imaging was performed. COMPARISON: CR LEFT LITTLE FINGER-POST REDUCT from 05/23/2016 FINDINGS: BONES: No acute fracture is present. No bony destructive lesion is seen. JOINTS: No dislocation present. There is spurring at the distal interphalangeal joint of the 5th fing er which shows mild flexion deformity. SOFT TISSUE: Soft tissue swelling around the proximal interphalangeal joint of the middle finger. No foreign body. IMPRESSION: Soft tissue swelling around the 3rd PIP joint. No evidence of fracture. DATA REPOSITORY: RADIATION DOSE DELIVERED:
== END 2020-07-21 03:33 ==
PROVIDERS: PCP Family Medicine; Visit Provider Chiropractor Orthopedic
DX: M79.89 Other specified soft tissue disorders (principal); M25.541 Pain in joints of right hand
CPT/HCPCS: 73120

== ENCOUNTER 2021-04-06 15:01 | Outpatient (REF) | payer OTHER, SELFPAY ==
[2021-04-08 11:44] LABS: COVID-19 RT-PCR UVMMC Result Negative (Negative)
== END 2021-04-06 15:02 | disposition home or self-care (01) ==
LOC: LBN 15:01
PROVIDERS: PCP Family Medicine; Visit Provider Physician Assistant Medical
DX: Z20.822 Contact with and (suspected) exposure to COVID-19 (principal); J06.9 Acute upper respiratory infection, unspecified
CPT/HCPCS: U0003

== ENCOUNTER 2023-09-25 14:22 | Emergency (ER) | payer OTHER, SELFPAY ==
[2023-09-25 14:25] VITALS: BP 130/94; PULSE 97; RESP 16; TEMP 37; O2SAT 97
--- NOTE | 2023-09-25 14:36 | ED.GENADUL_ITS ---
Discharge Plan Disposition Patient Disposition: Home Discharge Details Clinical Impression: Contusion of face, Laceration of nose Primary Care Provider: Mark Wallace ED Provider: Emeka Heath Home Meds and New Rx's Prescriptions: No Action No Known Home Meds Discharge Instructions Instructions: Facial Laceration (ED) Additional Instructions: Keep wound clean and dry. Just wash with soap and water. Can apply some Aquaphor or antibiotic cream as needed. You may notice some swelling bruising or stuffy nose develop over the next 1 to 2 days. He can use Afrin nasal spray as needed. Do not use Afrin for longer than 3 days. You can apply ice pack to the nose to help with swelling and bruising. Motrin and Tylenol as needed for pain. Your tetanus shot was updated today. Medical Decision Making Emergent evaluation of facial trauma. Small laceration noted. Doubt nasal bone fracture, doubt facial bone fracture. No evidence of ongoing bleeding. Wound is very small and does not require suture repair. Tetanus will be updated today. Wound care instructions provided to the patient. Medical Records Medical records reviewed: Yes I reviewed the patient's medical records. HPI General Date/Time Provider Initiated Documentation: 09/25/23 14:30 . Limitations to Documentation: no limitations . Information obtained by: patient . HPI Narrative: 63-year-old gentleman without significant past medical history presents for evaluation of injury to his nose. He reports that earlier today he was manipulating a post in the ground when it pulled back and hit him in the face. He did not lose consciousness. He reports bleeding on the outside of his nose and from the left nare. He has no difficulty breathing at this time. His tetanus shot is not up-to-date. Related Data Home Medications Medication Instructions Recorded Confirmed Unknown [No Known Home Meds] 01/31/23 09/25/23 Allergies Allergy/AdvReac Type Severity Reaction Status Date / Time Guopykm-UJR-[id number] Reductase AdvReac Intermediate muscle Verified 09/25/23 14:29 Inhibitor aches, [Tadhbqp-Nhx-Qtd Reductase Inhibitor] General Stated Complaint: Laceration FADI: 4 PFSH All Active Problems Laceration of nose (Acute) Contusion of face (Acute) Groin pain (Acute) Preventative health care (Acute) Pain in joint of right shoulder (Acute) Left ear pain (Acute) Fatigue (Acute) SOB (shortness of breath) (Acute) Muscle ache (Acute) Sore throat (Acute) Cough (Acute) OM (otitis media), acute suppurative, with perforation of eardrum (Acute) Otitis externa, left (Acute) DVT prophylaxis (Acute) Dental abscess (Acute) Right shoulder tendonitis (Acute) Likely biceps History of esophagogastroduodenoscopy (EGD) (Chronic ~10/2018) Encounter for screening colonoscopy (Acute ~10/2018) Obstructive sleep apnea (Chronic) Left knee pain (Acute) Overweight (Acute) Medical History Exposure to COVID-19 virus Social History Smoking/Tobacco Use Status: Never Smoking risk assessment performed?: Yes Alcohol Intake: current Alcohol Intake frequency: 0-2 drinks per day Alcohol type: beer and wine Drug use: Never Substance use type: does not use Housing: house Current gender identity: male Do you feel safe at home: Yes Do you feel safe in your relationship?: Yes Exam Narrative Exam Narrative: Review of Systems: All systems reviewed & are unremarkable except as noted in HPI and below Well-developed, no acute distress Small contusion to the anterior nasal bridge, no active bleeding, no deformity, no crepitus appreciated. Septum midline without nasal septal hematoma, no active epistaxis, no other injuries PERRL, normal conjunctiva RRR Unlabored respiratory effort Nondistended abdomen Extremities w/o deformity, no cyanosis, no edema No rashes or lesions. no focal neurologic deficits Appropriate mood and affect Course Vital Signs Vital signs: Vital Signs Temperature 37.0 C 09/25/23 14:25 Pulse 97 H 09/25/23 14:25 Respiratory Rate 16 09/25/23 14:25 Blood Pressure 130/94 H 09/25/23 14:25 Pulse Oximetry 97 09/25/23 14:25 Temperature 37.0 C 09/25/23 14:25 Temperature Source Temporal Artery Scan 09/25/23 14:25 Pulse 97 H 09/25/23 14:25 Respiratory Rate 16 09/25/23 14:25 Respiratory Effort Normal, Non-Labored 09/25/23 14:27 Blood Pressure 130/94 H 09/25/23 14:25 Blood Pressure Position Supine 09/25/23 14:25 Pulse Oximetry 97 09/25/23 14:25 Oxygen Delivery Method Room Air 09/25/23 14:25 Oxygen Flow Rate 0 09/25/23 14:25 Pain Level 3 09/25/23 14:25 PAWSS Have you Been Recently Intoxicated or Drunk Within the Last 30 days?: No Have you Ever Experienced Previous Episodes of Alcohol Withdrawal?: No Have you ever Experienced Withdrawal Seizures?: No Have you ever Experienced Delirium Tremens(DT)s?: No Have you ever undergone Alcohol Rehabilitation Treatment (i.e, inpt ot outpatien t treatment programs)?: No Have you ever Experienced Blackouts?: No Have you ever Combined Alcohol with other Downers within the last 90 days?: No Have you ever Combined Alcohol with any other Substance of Abuse during the last 90 days?: No Positive Blood Alcohol level on Presentation? [PCS.BAL]: No Evidence of Increased Autonomic Activity (i.e. HR>120, tremor, sweating, agitation, nausea)?: No Result: 0
[2023-09-25 14:53] VITALS: BP 130/94; PULSE 97; RESP 16; O2SAT 97
== END 2023-09-25 14:55 | disposition home or self-care (01) ==
PROVIDERS: Emergency Provider Emergency Medicine; PCP Family Medicine
DX: S00.83XA Contusion of other part of head, initial encounter (principal); S01.21XA Laceration without foreign body of nose, initial encounter; W22.8XXA Striking against or struck by other objects, initial encounter; Y93.H9 Activity, other involving exterior property and land maintenance, building and construction; Y92.89 Other specified places as the place of occurrence of the external cause
CPT/HCPCS: 99283; 99282

== ENCOUNTER → 2023-10-08 14:26 | Outpatient (CLI) | payer OTHER, SELFPAY ==
--- NOTE | 2023-10-08 | DI.RAD_ITS ---
Exam(s) XR SHOULDER RT COMPLETE 2+V EXAM: XR SHOULDER RT COMPLETE 2+V CLINICAL HISTORY: PAIN RT SHOULDER JOINT, M25.511. TECHNIQUE: 2D digital imaging was performed of the right shoulder. Six images were obtained. AP, G rashey, Y-view and axillary views were obtained. COMPARISON: CR XR shoulder RT complete 2+V from 05/05/2019 FINDINGS: BONES: No acute fracture is present. No bony destructive lesion is seen. JOINTS: No dislocation present. The acromioclavicular and glenohumeral joints are unremarkable. SOFT TISSUE: The visualized lungs are clear. IMPRESSION: Unremarkable radiographs of the right shoulder. DATA REPOSITORY: RADIATION DOSE DELIVERED:
== END ==
PROVIDERS: PCP Family Medicine; Visit Provider Physician Assistant Medical
DX: M25.511 Pain in right shoulder (principal)
CPT/HCPCS: 73030

== ENCOUNTER → 2023-12-09 02:43 | Outpatient (CLI) | payer OTHER, SELFPAY ==
--- NOTE | 2023-12-09 06:30 | DI.MRI_ITS ---
Exam(s) MR UPPER JOINT RT WO EXAM: MR UPPER JOINT RT WO CLINICAL HISTORY: R SHOULDER PAIN,tendinopathy rt biceps tendon,rt rotator cuff tear,m67.921, TECHNIQUE: Multiplanar multisequence MRI of the shoulder was performed. COMPARISON: CR XR SHOULDER RT COMPLETE 2+V from 10/08/2023 FINDINGS: MARROW:There is no evidence of fracture, Hill-Sachs deformity, nor ominous osseous lesions. There is a degenerative subarticular cyst in the greater tuberosity measuring approximately 10 x 11 mm. GLENOHUMERAL JOINT: Small amount of increased joint fluid. No loose intra-articular bodies evident. There is moderate degenerative change in the glenohumeral joint. Mild generalized cartilage loss no lindsey and there is also a moderate size osteophyte on the inferior articular surface of the humeral hea d. No evidence of degenerative subarticular cysts in the osseous glenoid. ROTATOR CUFF MECHANISM: AC JOINT/ACROMIUM: Only minimal degenerative changes in the AC joint noted. There is no osteophytic ridge on the undersurface of the acromion.. There is no evidence of os acromiale. Supraspinatus: The supraspinatus tendon is thickened and exhibits abnormal high signal consistent wit h tendinitis-tendinosis. In addition, there is a small area of full-thickness tear in the tendon jus t above the greater tuberosity attachment (best seen on coronal T2 fat-sat series 6001/image 17). Th ere is no retraction of the musculotendinous junction and no muscle atrophy. There is fluid in the o verlying subacromial-subdeltoid bursa. Infraspinatus: Some tendinitis signal noted but no high-grade tear. No atrophy. Teres Minor: Intact. No evidence of tear nor muscle atrophy. Subscapularis/anterior cuff: Mild tendinitis signal. No full-thickness tear. BICEPS TENDON: Biceps tendon appears intact within the intertubercular groove. Exhibits abnormal sig nal within the intra-articular component but without full-thickness tear nor detachment from the ante rosuperior labrum. There is fluid evident within the biceps tendon sheath. LABRUM: There is no signal abnormality in the superior labrum posterior to the biceps attachment site . The posterior labrum appears intact. Mild irregularity of the anterior labrum noted. Anterior in ferior labrum appears intact. The inferior glenohumeral ligament appears intact. QUADRILATERAL SPACE: No evidence of mass in the region of the axillary nerve and dorsal circumflex hu meral vessels. Visualized triceps muscle at this level appears unremarkable. IMPRESSION: 1. There is a small full-thickness tear of the rotator cuff/supraspinatus tendon just above the great er tuberosity, this superimposed upon tendinitis signal. There is overlying fluid in the subacromial -subdeltoid bursa space. Mild tendinitis also evident in the infraspinatus but no high-grade tear of the infraspinatus. 2. Mild increased signal is noted in the intra-articular aspect of the biceps tendon but without high -grade tear nor detachment from the anterosuperior labrum and there is no evidence of labral SLAP tea r. 3. There are moderate degenerative changes in the glenohumeral joint including a moderate size osteop hyte on the inferior articular surface of the humeral head. There is a degenerative subarticular cys ts in the greater tuberosity. There are no degenerative subarticular cysts in the osseous glenoid. 4. Only minimal degenerative changes in the AC joint. No downgoing osteophytes and there is no unde rsurface ridge at the level the acromion. DATA REPOSITORY:
== END ==
PROVIDERS: PCP Family Medicine; Visit Provider Student in an Organized Health Care Education/Training Program
DX: S46.011A Strain of muscle(s) and tendon(s) of the rotator cuff of right shoulder, initial encounter (principal); X58.XXXA Exposure to other specified factors, initial encounter
CPT/HCPCS: 73221

== ENCOUNTER 2024-01-01 06:12 | Day surgery (SDC) | payer OTHER, SELFPAY ==
[2024-01-01] VITALS (11 sets, daily range): BP systolic 108–131; BP diastolic 70–99; PULSE 65–83; RESP 15–23; TEMP 35.9–36.7; O2SAT 94–97; BMI 28.8
--- NOTE | 2024-01-01 06:34 | W.ANESPRE ---
General Info Date of Service Date Performed: 01/01/24 Height: 6 ft 1 in Weight: 99.337 kg Body Mass Index (BMI): 28.8 Surgical Procedure: Operation Date: 01/01/24 08:10 Proposed Procedure Side Surgeon p Shoulder Rotator Cuff Arthroscopic w/Extensive Debridement, Possible Biceps Tenodesis, Subacromial Decompression Right Parviz Sharif MD Meds Allergies and Home Medications Allergies Allergy/AdvReac Type Severity Reaction Status Date / Time No Known Allergies Allergy Verified 01/01/24 06:20 Home Medication Medication Instructions Recorded Sleep Aid (diphenhydramine) 01/01/24 aspirin 81 mg capsule 81 mg PO DAILY prevent blood clot 01/01/24 7 days #7 caps caffeine 200 mg tablet 200 mg PO DAILY PRN 01/01/24 melatonin 3 mg capsule 3 mg PO DAILY 01/01/24 naproxen 250 mg tablet 250 - 500 mg (1 - 2 x 250 mg) PO 01/01/24 BID PRN moderate pain and swelling #40 tabs oxycodone 5 mg tablet 5 - 10 mg (1 - 2 x 5 mg) PO .q4-6h 01/01/24 PRN severe pain #18 tabs Current Visit Medications: Current Medications Generic Name Dose Route Start Last Admin Trade Name Freq PRN Reason Stop Dose Admin Ringer's Solution 1,000 mls @ 30 mls/hr 01/01/24 06:00 IV 01/30/24 23:59 INFUSION TATYANA Cefazolin Sodium/Dextrose 2 gm in 50 mls @ 100 mls/hr 01/01/24 06:00 Ancef Duplex IVPB 01/01/24 16:00 PREOP TATYANA Tranexamic Acid/Sodium Chloride 1,000 mg in 100 mls @ 600 mls/hr 01/01/24 06:00 IVPB 01/01/24 16:00 PREOP TATYANA IV Miscellaneous Supplies 1 each 01/01/24 06:00 Iv Access IV 01/30/24 23:59 DIRECTED TATYANA Sodium Chloride 0 ml 01/01/24 06:00 Normal Saline Flush 10 Ml Syr IV 01/30/24 23:59 PRN PRN Sodium Chloride 0 ml 01/01/24 06:00 Normal Saline 10 Ml Vial IJ 01/30/24 23:59 DIRECTED PRN Sterile Water 0 ml 01/01/24 06:00 Water,Injection,Sterile 10 Ml Vial IJ 01/30/24 23:59 DIRECTED PRN PFSH Active Problems Active Problems: Problem Status Onset Code Tendonitis of long head of biceps brachii of right shoulder M75.21 Bursitis of right shoulder M75.51 Tendinopathy of right biceps tendon M67.921 Right rotator cuff tear M75.101 Groin pain R10.30 Preventative health care Z00.00 Left ear pain H92.02 Fatigue R53.83 SOB (shortness of breath) R06.02 Muscle ache M79.10 Sore throat J02.9 Cough R05.9 OM (otitis media), acute suppurative, with perforation of eardrum H66.019 Otitis externa, left H60.92 DVT prophylaxis Z29.9 Dental abscess K04.7 Encounter for screening colonoscopy ~10/2018 Z12.11 Obstructive sleep apnea G47.33 Left knee pain M25.562 Overweight E66.3 Medical History Medical History Exposure to COVID-19 virus Surgical History Surgical History Hx of hernia repair as a kid Hx of colonoscopy History of esophagogastroduodenoscopy (EGD) (~10/2018) Tobacco Smoking/Tobacco Use Status: Current every day Tobacco Type: cigars Alcohol Alcohol Intake: current Alcohol intake frequency: 0-2 drinks per day Alcohol type: beer and wine Substance Use Substance use: Never Substance use type: does not use Vital Signs and Lab Results Lab Results Blood Type / Crossmatch: No Data to Display Complete Blood Count: No Data to Display Complete Metabolic Panel: No Data to Display Liver Function Panel: No Data to Display Coagulation Panel: No Data to Display Cardiac Panel: No Data to Display Arterial Blood Gas: No Data to Display Venous Blood Gas: No Data to Display Pancreas Panel: No Data to Display Thyroid Panel: No Data to Display Infectious Disease: No Data to Display Blood Cultures: No Data to Display Toxicology Panel: No Data to Display Imaging and Studies Imaging and Studies Study information below may be from another EMR and interpreted by another provider. Please see original notes in EMR for more complete details. Stress Test Summary: Patient Name: MARTHA MATT Unit #: [id number] Loc: [place] Ordering Provider: Jaye Leung NP Status: DIS RAFAEL Primary Care Provider: Mark Wallace Date of Exam: 12/02/19 Sex: M Admission Date: 12/01/19 : 1960 Age: 59 Exam(s) a NM:NM MPI rest & stress grp APPROVED REPORT Exam: Exercise Treadmill Patient Location: In-Patient Room/Bed: 216 Stress Nurse: Magalie Buchanan RN BMI: 29.15 Baseline Rhythm: Sinus Rhythm Comment: Slight St Segment Elevation in Inferior leads at baseline. Indications: Patient admitted to hospital 12/01/2019 after four days of increasing SOB and approximately twenty four hours of midsternal/substernal chest pressure (3/10). Medical History Medical History: GERD, Sleep Apnea. Cardiac Medications: Atorvastatin Allergies: No known drug allergies Cardiac Risk Factors: FHX of CAD, Hyperlipidemia Previous Cardiac Procedures: None Pretest Chest Pain Characteristics: Midsternal/Substernal chest pressure 3/10 at baseline today. Exercise History: Sedentary Physical Disabilities: None Lung Sounds: Clear to auscultation Heart Sounds: Regular Stress Test Details Test: Exercise stress testing was performed using a Malcom protocol. Nuclear Acquisition: Stress Tc-99m/Stress Tc-99m 1 day Rest Isotope: Tc-99m Sestamibi. Dose: 10.7 Date: 12/02/2019 Injection Time: 0815 Stress Isotope: Tc-99m Sestamibi. Dose: 31.8 Date: 12/02/2019 Injection Time: 1115 HR Resting HR Supine: 71 bpmMax Heart Rate (APMHR): 162 bpm Resting HR Standin bpmTarget HR (85% APMHR): 137 bpm Max HR Achieved: 167 bpm % of APMHR: 103 HR response to stress: Normal HR response to stress BP Resting BP Supine: 140/98 mmHg Resting BP Standin/94 mmHg Max BP: 140/98 mmHg ECG Resting ECG: Sinus Rhythm Stress ECG: Sinus Tachycardia ST Change: Horizontal ST depression Lead(s): V4, V5 Maximum ST Deviation: 0.5 mm Arrhythmia: None Recovery ECG: Sinus Rhythm Recovery ST Change: Normal Recovery Arrhythmia: None Clinical Reason for Termination: Fatigue Stress Symptoms: No change during exercise testing with pre test chest pressure 3/10. Exercise duration: 9 min47 sec Highest Stage Reached: Stage 4: 4.2 mph at 16% grade. Exercise capacity: 11.44 METs Functional Capacity: Average Capacity Stress ECG Conclusion 1. The patient exercised for 9 minutes 47 seconds (11 METS). Exercise was terminated due to fatigue. 2. The patient had a chest pressure prior to ambulation which continued through exercise. 3. There were 0.5 to [address] depressions in the lateral leads during exercise. Protocol Used: Malcom Protocol Stress Test Summary STAGETime (mins)Speed (mph)Grade (%)[id number] [id number]/98 [id number]/94 [id number] 1 min [id number]/70 3 min [id number]/90 6 min hibcqfdi28495/94 9 min recovery 12 min recovery MPI Conclusion The patient's ejection fraction was 62% with exercise. There were no wall motion abnormalities. There was no evidence of ischemia on the imaging portion of this exam. This represents a normal SPECT imaging study. Ordered By: Jaye Leung NP CC: Dictated By: Van Giang M.D. 12/02/19 1149 <Electronically signed by Van Giang M.D. in [place]> 12/03/19 1146 Transcribed By: Van Giang MD This is privileged, confidential information intended only for the provider named. Any use or distribution by any person other than this provider is strictly prohibited. If you receive this report in error, please notify us immediately at [phone] and return the original report to us at the address above. Thank-you. Echocardiogram Summary: Patient Name: MARTHA MATT Unit #: [id number] Loc: DI Ordering Provider: Mark Wallace Status: REG CLI Primary Care Provider: Mark Wallace Date of Exam: 01/17/20 Sex: M Admission Date: 01/17/20 : 1960 Age: 59 Exam(s) a US:US echocardiogram APPROVED REPORT EXAM: Comprehensive 2D, Doppler, and color-flow Echocardiogram Patient Location: Out-Patient Correctional Classification Counselor: Lorena Barreto RDCS (AE) Indications: Shortness of Breath Other Information Study Quality: Adequate Conclusion Left Ventricle : The left ventricle is normal size. The left ventricular systolic function is normal. The left ventricular ejection fraction is within the normal range. There is normal left ventricular wall thickness. There is normal LV segmental wall motion. The left ventricular diastolic function is normal. LVEF is 50-55%. Right Ventricle : The right ventricle is normal size. The right ventricular systolic function is normal. Atria : The left atrium size is normal. The right atrium size is normal. Also: There are no hemodynamically significant valvular lesions. Great Vessels : IVC is normal in size and collapses >50% with inspiration. There is no prior echocardiogram available for comparison. Wall motion Left Ventricle The left ventricle is normal size. The left ventricular systolic function is normal. The left ventricular ejection fraction is within the normal range. There is normal left ventricular wall thickness. There is normal LV segmental wall motion. The left ventricular diastolic function is normal. There is no ventricular septal defect visualized. LVEF is 50-55%. Right Ventricle The right ventricle is normal size. The right ventricular systolic function is normal. The RVSP is 16mmHg. Atria The left atrium size is normal. The right atrium size is normal. The interatrial septum is intact with no evidence for an atrial septal defect. Aortic Valve The aortic valve is normal in structure. Aortic valve is trileaflet. There is no aortic valvular stenosis. No aortic regurgitation is present. Mitral Valve The mitral valve is normal in structure. No evidence of mitral valve stenosis. Trace mitral regurgitation. Tricuspid Valve The tricuspid valve is normal in structure. There is no tricuspid valve stenosis. Trace tricuspid regurgitation. Pulmonic Valve The pulmonary valve is normal in structure. There is no pulmonic valvular stenosis. Trace pulmonic regurgitation. Great Vessels The aortic root is normal in size. The ascending aorta is normal in size. IVC is normal in size and collapses >50% with inspiration. Pericardium There is no pericardial effusion. There is no pleural effusion. 2D Dimensions IVSD d PLAX 1.04 cm M: 0.6-1.2LV Vol A2C d MOD 62.9 mL LVPW d PLAX 1.02 cm M: 0.6 - 1.2LV Vol A4C d MOD 89.9 mL LVID d PLAX 4.19 cm M: 4.2 - 5.8LA vol/ BSA A2C s A-L22.1 mL/m2 LVDs 3.05 cm M: 2.5 - 4.0LA vol/ BSA A4C s A-L14.2 mL/m2 Ao Root d 3.44 cm M: 3.1 - 3.7LA Vol/ BSA Biplane s A-L 19.7 mL/m2 RA Area A4C12.99 cm2LA Area A4C s MOD 12.59 cm2 RA Vol/ BSA A4C s A-L 15.2 mL/m2LA Area A2C s MOD 17.44 cm2 LV EF Teichholz 53.0 %LV EF A4C MOD 52.8 % LVEF (Newman's)55.34 % M: 52 - 72LV EF A2C MOD 60.5 % LV Viurmx82.57 mL M: 62 - 150LV EF Biplane MOD 55.3 % LV Volume Index27.91 mL/m2 M: 34 - 74 LV Vol Biplane MOD 83.0 mL FS26.95 % M-Mode TAPSE 2.04 cm (M/F) <1.7 LV Diastology MV E' medial0.065 (>0.07 m/s)E/A Ratio 0.7 LV E/e MED10.90 (<14)MV E Vmax 0.71 (0.4-1.3 m/s) MV E' lateral0.076 (>0.1 m/s)MV A Vmax 0.95 (0.4-1.3 m/s) LV E/e LAT9.35 (<14)MV E/A Ratio 0.75 MV E/E' medial 10.94 MV E/E' lateral9.35 Aortic Valve LVOT Area3.20 cm2AoV Area Vmax2.67 cm2 LVOT Vmax 1.16 m/sAoV Area/ BSA (Vmax)1.23 cm2/m2 LVOT Mean Tavon.0.72 m/sAVA Mean Tavon.2.08 cm2 LVOT Peak Grad 5.4 mmHgAVA Mean Tavon. Index0.96 cm2/m2 LVOT Mean Grad 2.5 mmHg LVOT VTI0.220 m LVOT Diam s 2.00 cm (M/F) 1.5-2.5 AoV Vmax1.39 (0.5-1.3 m/s) Velocity Ratio 0.83 AoV Mean Tavon.1.11 m/s AoV Peak Grad7.7 mmHg LVOT SV 70.27 mL AoV Mean Grad5.2 (<5 mmHg) AoV VTI0.216 (0.18-0.25 m) AoV Area VTI3.26 (2.5-4.5 cm2) AoV Area/ BSA (VTI)1.50 cm/m2 Mitral Valve MV DT 323 (160-240 msec) MV PHT94 msec MV Area PHT 2.35 cm2 Pulmonary Valve PV Vmax 1.04 (0.5-1.5 m/s)RVOT Peak Gr.1.75 mmHg PV Peak Grad 4.3 mmHgRVOT Mean Gr.0.75 mmHg PV Mean Grad 2.1 mmHgRVOT VTI0.116 m PV VTI 0.161 mRVOT Vmax 0.66 m/s Tricuspid Valve TR Peak Grad 13.0 mmHgTR Vmax 1.81 m/s RA Pressure 3.00 mmHg RVSP (TR) 16.1 mmHg Ordered By: Mark Wallace CC: Dictated By: Van Giang M.D. 01/17/20 1143 <Electronically signed by Van Giang M.D. in [place]> 01/17/20 1247 Transcribed By: Van Giang MD This is privileged, confidential information intended only for the provider named. Any use or distribution by any person other than this provider is strictly prohibited. If you receive this report in error, please notify us immediately at [phone] and return the original report to us at the address above. Thank-you. Anesthesia Assessment and Plan Anesthesia History Personal History: No History of Anesthesia Complications Family History: No Family History of Anesthesia Complications Exercise Tolerance Exercise Tolerance: Metabolic Equivalents>4 Pertinent Negatives Pertinent Negatives: No Symptoms of GERD, No Major Cardiovascular Symptoms or Complaints and No History of CVA/TIA Cardiac & Pulmonary Exam Cardiac Exam: Normal S1/S2 Heart Sounds Pulmonary Exam: Clear Bilateral Breath Sounds Implantable Cardiac Device Does patient have a Pacemaker or an ICD?: No Airway Exam Known Difficult Airway: No Mallampati Class: 2 Mouth Opening: Normal (> 3cm) Thyromental Distance: Greater than 3 cm Neck Range of Motion: Full ROM Neck Circumference: Normal Teeth Condition: Normal Dentition ASA Classification ASA Score: ASA 2 Emergency Case?: No NPO Status NPO Status: NPO Clears >2 hours, Solids >8 hours Anesthesia Plan Resuscitation Status: Full Code Anesthesia Technique: General Anesthesia Airway Planned: Endotracheal Tube Pain Management: Surgeon and patient request nerve block Monitors Used: Standard Monitors Preoperative Comments:: 63 yo male here for RCR PMH: SOB, Fatigue (Caffeine 200mg/day, diphenhydramine (as a sleep aid)), Hyperlipidemia, GERD, GRUPO, HTN, UPPP, dental abscess, GETA with Brachial plexus block
[2024-01-01] MEDS: Lactated Ringers 1,000 ML 30 ML IV (07:00)
--- NOTE | 2024-01-01 07:09 | W.PM.DSUDISC ---
Date of service: 01/01/24 Time of Service: 10:00 Discharge Plan Disposition Patient Disposition: Home Condition: Stable Discharge Details Attending Provider: Parviz Sharif Primary Care Provider: Mark Wallace Home Meds and New Rx's Prescriptions: New naproxen 250 mg tablet 250 - 500 mg PO BID PRN (Reason: moderate pain and swelling) Qty: 40 0RF oxycodone 5 mg tablet 5 - 10 mg PO .q4-6h PRN (Reason: severe pain) Qty: 18 0RF aspirin 81 mg capsule 81 mg PO DAILY 7 Days Qty: 7 0RF Continued caffeine 200 mg tablet 200 mg PO DAILY PRN melatonin 3 mg capsule 3 mg PO DAILY Sleep Aid (diphenhydramine) Patient Comments: pt. unsure of dose and name Discontinued ibuprofen [I-Prin] 200 mg tablet 200 mg PO ONCE Discharge Instructions Additional Instructions: Surgery: Right shoulder arthroscopy with rotator cuff repair (supraspinatus and subscapularis), biceps tenodesis, extensive debridement, and subacromial decompression. Activity: For 6 weeks, you should keep your arm at your side in a neutral position at all times except for physical therapy. Do not try to lift or raise your arm using your own muscles. You should use the sling whenever you are out of the house. You may have to adjust the abduction pillow or remove it for comfort. At home it is best to remove the sling and rest the arm on a pillow at your side or support the operative side with your other hand. You may allow the arm to dangle at your side. A physical therapy prescription will be sent electronically to begin in about 3 weeks. Standard protocol. Prescriptions: Aspirin 81 mg take 1 daily to prevent a blood clot for 7 days Naproxen 250 mg take 1-2 every 12 hours with a meal as needed for moderate pain Oxycodone 5 mg take 1-2 every 4-6 hours as needed for severe pain You may use lhkl-pee-vdagkqf Tylenol (acetaminophen) as needed for mild pain. These pain medications may be taken all at once or in different combinations as needed. Also, recommend Colace (docusate) as a stool softener as surgery and pain medicine cause constipation. You may try mxwr-pyw-kihbdeu diphenhydramine (Benadryl) 25-50 mg nightly as a sleep aid Dressings: Remove shoulder bandage after 3 days. Leave the sticky Steri-Strips in place until they fall off or remove them after you shower. Cover the incisions with Band-Aids or leave them open to air. You may shower after 5 days. Follow-up: 10-[address] Sharif You may take off the leg compression stockings this evening at home. You may also leave them on a few days longer if you have a history of leg swelling or edema. Let us know right away if you develop any redness, drainage, fevers, chest pain, or trouble breathing. Do not drink alcohol or drive for at least 24 hours after anesthesia. Please call the office during business hours with any questions or concerns. Stand Alone Forms: Anesthesia Discharge Inst., Zander.Nerve Block Instructions, Uriel Pereyra ([facility]U) Referrals: Parviz Sharif MD [ [facility] STAFF PHYSICIAN] - 01/14/24 11:15 am Discharge Orders Discharge Orders: Discharge Order (Routine); Ordered 01/01/24 Ordered By: Helen Pinedo DS: Diagnosis Discharge Diagnosis (1) Right rotator cuff tear: Status: Acute
--- NOTE | 2024-01-01 07:19 | ROE_ITS ---
Date of service: 01/01/24 Time of Service: 08:00 Operative Note Operative Note DATE OF PROCEDURE: 01/01/24 PRE-OP DIAGNOSIS: Right: 1. Rotator cuff tear 2. LHB tendinopathy 3. Bursitis POST-OP DIAGNOSIS: same PROCEDURE: Right: 1. Rotator cuff repair, CPT# 47183. This involved suture repair of the subscapularis and suture anchor repair of the supraspinatus to reattach the rotator cuff back to the footprint of the greater tuberosity. 2. Arthroscopic biceps tenodesis, CPT# 42916. This involved arthroscopically suturing and securing the long head of the biceps tendon at the superior aspect of the bicipital groove 3. Extensive debridement, CPT# 24099. This involved using arthroscopic hand instruments, power instruments, and radiofrequency instruments to release the long head of the biceps tendon and debride areas of SLAP tearing, anterior labral tearing, release [facility] L, debride rotator interval synovitis, and chondromalacia about the biceps groove and anterior humeral head working within the glenohumeral joint anteriorly, superiorly and posteriorly. 4. Subacromial decompression with partial acromioplasty, CPT# 73986. This involved using arthroscopic power instruments and a radiofrequency wand to complete a bursectomy and smooth the undersurface of the acromion. The assistant professor of radiology was medically required in order to help assist in techniques above, which require positioning the arm, holding the arthroscope, and manipulating multiple instruments and sutures at the same time. This cannot be done without the help of an experienced assistant professor of radiology. SURGEON: Parviz Sharif FAST FOOD DELIVERY DRIVER: Helen Pinedo ANESTHESIA TYPE: Local By Surgeon, General LMA/ETT and Primary Nerve Block Refer to Anesthesia Record ESTIMATED BLOOD LOSS: 5 PATHOLOGY: none sent COMPLICATIONS: None Patient was transported to: PACU Patient's condition: stable Implants: Arthrex: Knotless 4.75mm SwiveLocks x 1 Indications: The patient was diagnosed with the above conditions and appropriately indicated for surgical intervention. Please see complete medical record for details. Findings: Exam under anesthesia: Full range of motion, no instability Glenohumeral joint: Significant superior and anterior rotator interval synovitis, disrupted [facility] L and chronic?appearing subscapularis split tearing between the upper margin and the remainder of the body centrally with only small amount of footprint lesser tuberosity uncovered involvement. Moderate chondromalacia between the biceps and lesser tuberosity with disrupted biceps sling. Superior aspect bicipital groove and intra-articular biceps partial tearing. Disruption biceps anchor SLAP tear. Anterior labral tearing fraying anteriorly to posterior superiorly. No articular supraspinatus or infraspinatus rotator cuff tear. Subacromial space: Significant bursitis, moderately significant undersurface acromial narrowing reducing bursal space. High-grade, probably about 90% thickness central supraspinatus bursal tear without full-thickness component. Intact infraspinatus. Anterior supraspinatus tendinopathy. Procedure Description: In the operating room, general anesthesia was induced. Bilateral shoulders were examined. The patient was positioned in the beachchair position. All bony prominences were well-padded. Preoperative antibiotics were administered. The shoulder was prepped and draped in the usual sterile fashion. The correct patient, procedure, and side of the procedure were all verified prior to incision. Starting through the posterior portal a standard complete diagnostic arthroscopy was performed of the glenohumeral joint including inspection of the long head of the biceps, anterior and superior labrum, subscapularis tendon, supraspinatus and infraspinatus tendons, and axillary recess. The glenoid and humeral head cartilage as well as the posterior labrum were inspected from an anterior viewing portal. Significant findings and interventions noted above. An all-arthroscopic suprapectoral biceps tenodesis was performed through an anterior portal using a Loop N Tack method with a SutureTape FiberLink cinched around and through the tendon. The biceps tendon was withdrawn to the level of the superior biceps groove and repair suture maintained out the anterior cannula protected for later repair combined likely with rotator cuff. After completion of the debridement and securing the biceps tendon, decision was made to enter the subacromial space in case the supraspinatus tear became larger or full- thickness to plan for the tendon repair to the best configurations. Starting through the posterior portal, the arthroscope was directed into the subacromial space. A lateral 50 yard line lateral portal was created. A combination of power instruments and a radiofrequency ablator were used to debride bursitis anteriorly, posteriorly, and laterally as well as expose and smooth bone spurring on the undersurface of the acromion. The coracoacromial ligament was partially released. The bursectomy was completed viewing laterally and working from posteriorly and the rotator cuff was thoroughly inspected with findings noted above. The supraspinatus tear was readily identified and significant surrounding bursitis debrided. There was some tissue remnant laterally central greater tuberosity that was resected, the bone was abraded about the course of the tear and the tendon lightly debrided to better quality tissue. The tear was inspected probed and arm positioned in external rotation to optimize position for repair. There was surprisingly no full-thickness component with a thin veil of tissue remained medially even after debriding all tissue and preparing the bony footprint for repair. This was confirmed going back into the joint and confirming none of the probing from the lateral superior anterolateral portals did enter the joint unknowingly. Given the tear about 1 cm in size anterior posterior, not full-thickness, decision was made to proceed with a speed fix type repair configuration bringing all remnant tissue over the majority of the prepared greater tuberosity confirmed with cuff grasper. The scorpion suture passer used to place an inverted horizontal mattress FiberTape through as much of the tendon as possible the majority the bursal layers widely spaced to accommodate the tear size and then place a suture tape FiberLink cinched around the more anterior aspect of the partial tendon tearing. The biceps repair suture was then retrieved in the subacromial space while maintaining the biceps at the appropriate level in the joint and brought out the lateral cannula as well. A single lateral central anchor was placed using the undersized punch and then a knotless 4.75 mm anchor placed with appropriate tension on the supraspinatus bursal repair sutures taking care to avoid too much tension on this partial-thickness repair and completing the biceps tenodesis with the biceps at the correct location confirmed viewing in the joint with that repair suture exiting the transverse humeral ligament and then compressing the anteriormost supraspinatus partial tearing tissue as well. The repair was inspected and good. There is a small area that could accommodate an additional stitch anteriorly so the scorpion was used to place knotless repair suture here and secured through the anchor knotless anchor mechanism completing the anchor with nicely spaced 5 repair stitches from posterior to anterior. No additional bursal tendon required repair. The infraspinatus was intact wrapping around posteriorly. Lastly, the glenohumeral joint was entered again and the subscapularis tear inspected with the arm maintained now in neutral. The lesser tuberosity involvement was minimal and it did appear mostly chronic in the given the patient had minimal subscapularis clinical exam findings decision was made to proceed with a suture only repair. Appropriate release of the tendon was confirmed, the [facility] L and anterior capsular tissue had been from the tendon. The 90 degree lasso was used to place a central simple circumferential stitch through the upper portion of the subscapularis around the bulk of the tear and secured with SMC arthroscopic knot with the knot directed outside the joint. This repair suture nicely reduced the tendon gap and recreated more normal tendon structure. There is no additional subscapularis repair necessary. The shoulder was drained of arthroscopic fluid. All portal sites were copiously irrigated. These incisions were closed using 3-0 Monocryl in a buried fashion and then covered with Mastisol, Steri-Strips, Xeroform, dry gauze, and ABDs. The dressings were covered and secured with Medipore tape. The operative extremity was placed into a sling for immobilization. The patient awoke from anesthesia without complication and was transferred to the recovery room in a stable condition.
[2024-01-01] MEDS: ceFAZolin 2 GM/50 ML BAG IVPB (08:10)
[2024-01-01] MEDS: TRANEXAMIC ACID/SOD. CHL. 1,000 MG/100 ML BAG 600 MG IVPB (08:24)
--- NOTE | 2024-01-01 08:26 | W.ANESNERVE ---
Nerve Block Single Injection Procedure Date and Time Date Performed: 01/01/24 Procedure Start: 07:42 Location Where Procedure Performed Procedure Location: Day Surgery Unit Reason Performed: Postoperative Analgesia Requesting Provider: Parviz Sharif Timeout Performed Timeout Performed: Yes Monitoring Used ECG, Blood Pressure, SpO2 and ETCO2 Sterility Sterility: Hand Hygiene, Surgical Cap, Surgical Mask, Sterile Gloves and Chlorhexidine Sedation Given During Procedure Sedation Given (Indicate Dose Given): Versed IV Dose:: 2 mg Patient Mental Status Patient Mental Status: Sedate with meaningful communication Nerve Block 1st Nerve Block: Laterality: Right Block Type: Interscalene Ultrasound Image Saved?: Yes Needle / Catheter Used: 100mm SonoPlex II Local Anesthetic Bolus (Indicate Dose Given): Lidocaine used for local infiltration of skin, Injected in 3-5ml increments after negative blood aspiration, Bupivacaine 0.5% Dose:: 10 ml and Exparel Dose:: 10 ml Additives (Indicate Dose Given): Normal Saline (hydrodissection) Ultrasound: Sterile probe cover and gel used Nerve Stimulator: Supplement to Ultrasound use and No twitch or parasthesia noted < 0.5 mA Paresthesia: None Procedure Tolerated: No Complications and Patient tolerated well Procedure Outcome: Successful Performed By: Vna Matthew
[2024-01-01] MEDS: EPINEPHrine 10 MG/10 ML ML (09:59)
--- NOTE | 2024-01-01 11:44 | W.ANESPOSTOP ---
Postoperative Evaluation Date, Time and Location Date Performed: 01/01/24 Time Performed: 11:44 Patient Location: Day Surgery Unit Vital Signs Most Recent Imported Vital Signs: Most Recent Vital Signs Temp Pulse Resp BP Pulse Ox 35.9 C L 66 18 108/80 94 01/01/24 11:29 01/01/24 11:29 01/01/24 11:29 01/01/24 11:29 01/01/24 11:29 Pain Score Most Recent Pain Score: Most Recent Pain Score Pain Level 0 01/01/24 11:29 Assessment Mental Status: Awake (Alert & Oriented to Patient Baseline) Airway and Respiratory Function: Patent airway with normal (patient baseline) respiratory exam Cardiovascular Function: Hemodynamically Stable Hydration Status: Adequately Hydrated Nausea & Vomiting: No Nausea or Vomiting Pain: Pt. Denies Any Pain Peripheral Nerve Block: Regional nerve block not resolved at time of post operative discharge
== END 2024-01-01 13:13 | disposition home or self-care (01) ==
LOC: SUR 06:12
PROVIDERS: PCP Family Medicine; Visit Provider Student in an Organized Health Care Education/Training Program
PROC: (CPT 29827; principal; 2024-01-01 08:00)
DX: M75.101 Unspecified rotator cuff tear or rupture of right shoulder, not specified as traumatic (principal); M75.21 Bicipital tendinitis, right shoulder; M67.921 Unspecified disorder of synovium and tendon, right upper arm; K21.9 Gastro-esophageal reflux disease without esophagitis; R06.02 Shortness of breath; R53.83 Other fatigue
CPT/HCPCS: 29827; 29828; 29823; 29826; 76942; C9290; J0131; J0665; J0690; J1100; J1885; J2001; J2250; J2371; J2405; J2704

== ENCOUNTER 2024-08-20 16:49 | Outpatient (CLI) | payer OTHER, SELFPAY ==
--- OUTSIDE RECORDS SUMMARY | 2024-08-20 16:52 | XMS_ITS | Encounter Summary ---
Author Organization Health system Address [address] [place] [address] Care Team Providers Care Tool And Die Supervisor Name Role Phone Unknown, Provider Primary Care Provider Unava ilable Encounter Details Date Type Department Care Team (Latest Contact Info) Description 11/02/2018 17:32 EST - 11/02/2018 23:59 EST Hospital Encounter [address] [address] Unknown, Provider, Discharge Disposition: Home or Self Care Social History Tobacco Use Types Packs/Day Years Used Date Smoking Tobacco: Never Assessed Sex and Gender Information Value Date Recorded Sex Assigned at Not on file Legal Sex Male 18:42 EST Gender Identity Not on file Sexual Orientation Not on file documented as of this encounter Discharge Disposition Disposition Code Departure Means Destination Home or Self Senior Care documented in this encounter Plan of Treatment Not on file documented as of this encounter Visit Diagnoses Not on filedocumented in this encounter Care Teams Tool And Die Supervisor Relationship Specialty Start Date End Date Unknown, ProviderMD PCP - General 08/04/15 documented as of this encounter
--- OUTSIDE RECORDS SUMMARY | 2024-08-20 16:52 | XMS_ITS | Encounter Summary ---
Author Organization [facility] Address [address] [place] [address] Care Team Providers Care Package Checker Name Role Phone Unknown, Provider Primary Care Provider Unava ilable Encounter Details Date Type Department Care Team (Late st Contact Info) Description 11/02/2018 Results Only [facility] [phone] Serena Spear MD [address] [place] [address] Social History Tobacco Use Types Packs/Day Years Used Date Smoking Tobacco: Never Assessed Sex and Gender Information Value Date Recorded Sex Assigned at Not on file Legal Sex Male 18:42 EST Gender Identity Not on file Sexual Orientation Not on file documented as of this encounter Plan of Treatment Not on file documented as of this encounter Procedures Procedure Name Priority Date/Time Associated Diagnosis Comments SURGICAL PATHOLOGY Routine 11/02/2018 21 :34 EST documented in this encounter Results * SURGICAL PATHOLOGY (11/02/2018 21:34 EST) Pathology Report: SURGICAL PATHOLOGY REPORT Reports generated via electronic interface contain original data; however they are lacking the format of the original report. Caution should be taken when reading/interpretin g unformatted reports. Name: ? ISHAN CORTEZ ? Accession #: ? [id number] ? : ? 1960 (Age: 58) ??M ? Collect Date: ? 11/02/2018 ? Location: ? [facility] ? Receive Date: ? 11/02/2018 ? Provider: SERENA SPEAR MD Copy to: ROSCOE TINSLEY MD ? Final Pathologic Diagnosis: A. STOMACH, PYLORUS, BIOPSY: - Gastric mucosa with erosive gastritis in a background of reactive (chemical) gastropathy. B. GASTROESOPHAGEAL JUNCTION, BIOPSY: - Squamocolumnar junctional mucosa with active reflux esophagitis. - Negative for intestinal metaplasia; Negative for dysplasia. ?? Document reviewed and electronically signed by: MANOLO FELIPE MD Report ??Date: 11/05/2018 10:50 By the signature above, the attending physician certifies that he/she has personally conducted a gross and/or microscopic examination of the described specimens and rendered or confirmed the above diagnosis. Specimen(s) Received: A. ??Bx pylorus B. ??Bx GE junction Clinical History: GERD Gross Description: A. ?Received in formalin labelled with proper patient identification (initials H, C) and 1. BX pylorus are three ellis-brown tissues (0.3 x 0.2 x 0.1 cm to 0.4 x 0.2 x 0.1 cm). Submitted in toto in A1. B. ?Received in formalin labelled with proper patient identification (initials H, C) and 2. BX GE junction are three ellis-brown tissues (0.2 x 0.2 x 0.1 cm to 0.6 x 0.3 x 0.2 cm). Submitted in toto in B1. CORY Farrell (ASCP) 11/03/2018 8:58 AM End of Report [facility] 11/02/2018 21:3 4 EST 11/02/2018 21:34 EST us Serena Spear MD PATHOLOGY ORDERABLES Fin al Result [facility] [address] [place] [address] documented in this encounter Visit Diagnoses Not on filedocumented in this encounter Care Teams Package Checker Relationship Specialty Start Date End Date Unknown, Provider, PCP - General 08/04/15 documented as of this encounter
--- OUTSIDE RECORDS SUMMARY | 2024-08-20 16:52 | XMS_ITS | Referral Summary ---
Author Organization Health system Address [address] [place] [address] Care Team Providers Care Medical Office Assistant Instructor Name Role Phone Unknown, Provider MD Primary Care Provider Unava ilable Social History Tobacco Use Types Packs/Day Years Used Date Smoking Tobacco: Never Assessed Interpersonal Safety Answer Date Record ed Physically Hurt Never 04/30/2020 Verbally Threaten Not on file 04/30/2020 Sex and Gender Information Value Date Recorded Sex Assigned at Not on file Legal Sex Male 18:42 EST Gender Identity Not on file Sexual Orientation Not on file Plan of Treatment Not on file Care Teams Medical Office Assistant Instructor Relationship Specialty Start Date End Date Unknown, Provider, PCP - General 08/04/15
--- OUTSIDE RECORDS SUMMARY | 2024-08-20 16:52 | XMS_ITS | Clinical Summary ---
Author Organization [facility] Address [address] [place] [address] Care Team Providers Care Dish Washer Name Role Phone Unknown, Provider MD Primary [...] Orientation Not on file Plan of Treatment Health Maintenance Due Date Last Done Comments Hepatitis C Screen 1960 COVID-19 Vaccine (2023- season) 2024 RSV Immunization ( o r 60+ Years) (1 - 1-dose 75+ series) 2036 Care Teams Dish Washer Relationship Specialty Start Date End Date Unknown, Provider, PCP - General 08/04/15
--- OUTSIDE RECORDS SUMMARY | 2024-08-20 16:52 | XMS_ITS | Encounter Summary ---
Author Organization [facility] Address [address] [place] [address] Care Team Providers Care Grooming Assistant Name Role Phone Unknown, Provider Primary Care Provider Unava ilable Encounter Details Date Type Department Care Team (Late st Contact Info) Description 04/07/2021 Lab Requisition [facility] [address] [place] [address] Outr Resulting Lab, Provider Social History Tobacco Use Types Packs/Day Years [...] Procedure Name Priority Date/Time Associated Diagnosis Comments ZZCOVID-19 TEST [facility] PCR Today 04/06/2021 14:04 EDT COVID-19 TESTING Routine 04/06/2021 14:0 4 EDT documented in this encounter Results * COVID-19 TEST [facility] PCR (04/06/2021 14:04 EDT) Swab ENTIRE NASOPHARYNX / Unknown 04/06/2021 14:04 EDT 04/07/2021 22:16 EDT us Provider Outr Resulting Lab MICROBIOLOGY - GENER AL ORDERABLES Final Result Performing Organization Address [facility] de Phone Number [facility] [address] [place] [address] * COVID-19 TESTING (04/06/2021 14:04 EDT) COVID-19 rt-PCR Result Negative Negative 04/08/2021 11:39 EDT [facility] Comment: This test has not been FDA cleared or approved. This test has been authorized by FDA under an EUA for use by authorized laboratories. This test has been authorized only for detection of nucleic acid from 2019-nCoV, not for any other viruses or pathogens. This test is only authorized for the duration of the declaration that circumstances exist justifying the authorization of emergency use of in vitro diagnostic tests for detection and/or diagnosis of 2019-nCoV under section 564(b)(1) of Act, 21 U.S.C ?? 360bbb-3(b) (1), unless the authorization is terminated or revoked sooner. Negative results do not preclude 2019-nCoV infection and should not be used as the sole basis for treatment or other patient management decisions. Negative results must be combined with clinical observations, patient history, and epidemiological information. Performed on the LINAGORAher Fusion instrument Performing Lab [facility] 04/08/2021 11:39 EDT [facility] Swab 04/06/2021 14:0 4 EDT 04/07/2021 22:16 EDT us Provider Outr Resulting Lab MICROBIOLOGY - GENER AL ORDERABLES Final Result Performing Organization Address [facility] Co de Phone Number [facility] [address] [place] [address] documented in this encounter Visit Diagnoses Not on filedocumented in this encounter Care Teams Grooming Assistant Relationship Specialty Start Date End Date Unknown, Provider, PCP - General 08/04/15 documented as of this encounter
--- OUTSIDE RECORDS SUMMARY | 2024-08-20 16:53 | XMS_ITS | Encounter Summary ---
Author Organization [facility] Address [address] [place] [address] Care Team Providers Care Professor Of Graphic Design Name Role Phone Unavailable Primary Care Provider Unavailabl e Encounter Details Date Type Department Care Team (Late st Contact Info) Description 10/20/2007 Results Only [facility] [address] [place] [address] Roscoe Lake MD [address] [place] [phone] Social History Tobacco Use Types Packs/Day Years [...] Date/Time Associated Diagnosis Comments SURGICAL PATHOLOGY Routine 10/20/2007 0:00 EST documented in this encounter Results * SURGICAL PATHOLOGY (10/20/2007 0:00 EST) Pathology Report: SURGICAL PATHOLOGY REPORT Reports generated via electronic interface contain original data; however they are lacking the format of the original report. Caution should be taken when reading/interpreti ng unformatted reports. Name: ? ISHAN CORTEZ ? Accession #: ? [id number] ? : ? 1960 (Age: 47) ??M ? Collect Date: ? 10/20/2007 ? Location: ? [facility] ? Receive Date: ? 10/22/2007 ? Provider: ROSCOE LAKE MD Copy to: ? Final Pathologic Diagnosis: ? 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 Document reviewed and electronically signed by: Gurvinder Mao MD Report ??Date: 10/23/2007 18:28 By the signature above, the attending physician certifies that he/she has personally conducted a gross and/or microscopic examination of the described specimens and rendered or confirmed the above diagnosis. Specimen(s) Received: ? Mid forehead Clinical History: ? Epidermal cyst mid forehead Gross Description: ? Received in formalin labelled Hahr and mid forehead is a white fibrous cystic structure which measures 1.4 x 0.7 x 0.5 cm. ??There is an attached 1.2 x 0.2 cm skin ellipse. ??The margins are inked blue and the specimen is bisected and entirely submitted in one cassette. (Dr. Reyes)/mpl End of Report [place] 10/20/2007 10/22/2007 11: 16 EST us Roscoe Lake MD PATHOLOGY ORDERABLES Final Resul t [place] [address] [place] [address] documented in this encounter Visit Diagnoses Not on filedocumented in this encounter
--- OUTSIDE RECORDS SUMMARY | 2024-08-20 16:53 | XMS_ITS | Encounter Summary ---
Author Organization [facility] Address [facility] [place] [address] Care Team Providers Care Plate Painter Apprentice Name Role Phone Mark Carreno MD Primary Care Provider [phone] Encounter Details Date Type Department Care Team (Late st Contact Info) Description 11/19/2010 12:40 PM EST Follow-[place] [address] Octavia Skinner MD [facility] [place] [address] Social History Tobacco Use Types Packs/Day Years Used Date Smoking Tobacco: Never Assessed Sex and Gender Information Value Date Recorded Sex Assigned at Not on file Gender Identity Not on file Sexual Orientation Not on file documented as of this encounter Plan of Treatment Not on file documented as of this encounter Visit Diagnoses Not on filedocumented in this encounter Care Teams Plate Painter Apprentice Relationship Specialty Start Date End Date Mark Carreno MD PCP - General 08/21/10 01/17/19 documented as of this encounter
--- OUTSIDE RECORDS SUMMARY | 2024-08-20 16:53 | XMS_ITS | Clinical Summary ---
Author Organization [facility] [place] [address] Care Team Providers Care Board Of Directors Name Role Phone Mark Carreno MD Primary Care Provider [phone] Social History Tobacco Use Types Packs/Day Years Used Date Smoking Tobacco: Never Assessed Sex and Gender Information Value Date Recorded Sex Assigned at Not on file Gender Identity Not on file Sexual Orientation Not on file Plan of Treatment Health Maintenance Due Date Last Done Comments CT Colonography 1961 Colonoscopy 1961 Colorectal Cancer Screening 1961 FIT DNA 1961 FIT 1961 Sigmoidoscopy (10 year) with FIT yearly 1961 Sigmoidoscopy 1961 HIV screen 1979 Hepatitis C Screening 1979 Lipid Screening 1979 Tetanus/Diphtheria/Pertussis Vaccines (1 - Tdap) 06/04 Zoster vaccine (1 of 2) 2011 Advance Directive 2016 Covid-19 Vaccine ( - season) 2024 Influenza (Flu) vaccine (1 o f 1 - Influenza standard series) 05/30/2024 Care Teams Board Of Directors Relationship Specialty Start Date End Date Mark Carreno MD [place] [address] PCP - General 01/18/19
--- OUTSIDE RECORDS SUMMARY | 2024-08-20 16:53 | XMS_ITS | Encounter Summary ---
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 Reports generated via electronic interface contain original data; ? however they are lacking the format of the original report. ? Caution should be taken when reading/interpreti ng unformatted reports. ? Name: ? VERNELL, MARTHA W ? Accession #: ? [id number] ? : ? 1960 (Age: 48) ??M ? Collect Date: ? 11/21/2008 ? Location: ? [facility] ? Receive Date: ? 11/21/2008 ? Provider: YADIRA DAMON MD ? Copy to: [place] MD ? Final Pathologic Diagnosis: ? A. ?Tonsil, right, tonsillectomy: ? 1. ?Reactive follicular lymphoid hyperplasia. ? 2. ? Actinomyces-like organisms identified. ? 3. ? Benign portions of skeletal muscle and minor salivary gland tissue. ? B. ?Tonsil, left, tonsillectomy: ? 1. ?Benign tonsillar tissue with no specific pathologic features. ? 2. ? Benign portions of skeletal muscle and minor salivary gland tissue. ? C. ?Uvula, resection: ? 1. ?Benign oral mucosa with minor salivary gland tissue. ? Document reviewed and electronically signed by: ? Clinton Osman MD ? Report ??Date: 11/23/2008 15:51 ? By the signature above, the attending physician certifies that he/she has ? personally conducted a gross and/or microscopic examination of the described ? specimens and rendered or confirmed the above diagnosis. ? Specimen(s) Received: ? A. ?Right tonsil ? B. ? Left tonsil ? C. ? Uvula ? Clinical History: ? Upper airway obstruction with sleep apnea ? Gross Description: ? Received in formalin labelled Hahr and right tonsil is a ellis-pink, ? ovoid, unoriented soft tissue measuring 3.5 x 2.0 x 1.3 cm and is partially ? surfaced by a ellis and smooth to wrinkled mucosa. ??Upon sectioning, the cut ? surfaces are ellis-pink with a crypt-like architecture. ??No definitive lesion is ?? identified. ??A associate sales representative section is submitted as (A). ? Received in formalin labelled Hahr and left tonsil is a ellis-pink, ovoid, ? unoriented soft tissue measuring 3.0 x 2.0 x 1.5 cm and is surfaced by a ellis and smooth to wrinkled mucosa. ??Upon sectioning, the cut surfaces are ellis-pink with a crypt-like architecture. ??No discrete lesion is identified. ??A associate sales representative section is submitted as (B). ? Received in formalin labelled Hahr and uvula is a ellis-pink, triangular, ? smooth to wrinkled, unoriented soft tissue measuring 1.1 x 1.0 x 0.7 cm and is ?? surfaced by glistening mucosa. ??The cut surfaces are ellis-white and homogenous. ?? The specimen is bisected and is entirely submitted as (C). ??/augusto ? End of Report ? [facility] 11/21/2008 11/21/2008 16: 47 EST us Yadira Damon MD PATHOLOGY ORDERABLES Final Resul t [facility] [address] [place] [address] documented in this encounter Visit Diagnoses Not on filedocumented in this encounter
[2024-08-20 17:48] LABS: Ferritin 226 ng/mL (26-388)
[2024-08-27 16:50] LABS: Testosterone, Free 9.09 ng/dL (3.67-13.9); Testosterone, Total 602 ng/dL (240-950)
== END 2024-08-20 16:50 | disposition home or self-care (01) ==
LOC: LBO 16:49
PROVIDERS: PCP Family Medicine; Visit Provider General Practice
DX: M62.81 Muscle weakness (generalized) (principal)
CPT/HCPCS: 36415; 84402; 84403; 82728